=== PATIENT | female | born 1930 | race Caucasian/White ===

== ENCOUNTER 2018-01-05 09:48 | Inpatient (IN) | payer MEDICARE, OTHER ==
[~2018-01-05] VITALS: Ht 157.5 cm; Wt 89.4 kg
[~2018-01-05 09:48] MED LIST: ACTOS; ACTOS15 MG PO; ANTIVERT25 MG PO; ATENOLOL 50 MG50 M1 PO; AZITHROMYCIN 2250 MG PO; BIOTENE ORALBAL42 GM MM; CALCIUM 600 +1 EAC5 PO; CEFTIN500 MG PO; CLOPIDOGREL; CYMBALTA60 MG; DIABETA; DIABETA 5MG TABL5 MG PO; FISH OIL 1,0001 EAC7 PO; FISH OIL 1,0001 EAC8 PO; GABAPENTIN100 MG PO; HYDROCODON-ACE1 EACH PO; LEVAQUIN 500 M500 M2 PO; LIPITOR; LIPITOR10 MG PO; LISINOPRIL-HCT1 EAC1 PO; LISINOPRIL-HCT1 EAC2 PO; MEDROLDOSEPACK PO; NEURONTIN 300300 M1; NEURONTIN 300300 M1 PO; NORCO 5-325 TA1 EACH PO; OMEPRAZOLE 20 M20 M1 PO; ONDANSETRON HCL4 M2 PO; PLAVIX 75 MG TA75 M1 PO; POTASSIUM20 PO; PREDNISONE 10 M10 M1; PREDNISONE 10 M10 M1 PO; RESTASIS1 EACH OP; VENTOLIN HFA 1818 GM INH; ZANTAC 150MG T150 M1; magic mouthwash PO
[2018-01-05] MEDS ORDERED: KLOR-CON 1010 MEQ PO (10:02)
[2018-01-05] MEDS ORDERED: TENORMIN50 MG PO (10:03)
[2018-01-05] MEDS ORDERED: JANUVIA100 MG PO (10:04)
[2018-01-05 10:27] LABS: ABSOLUTE BASOPHILS 0.1 thou/uL (0.0-0.2); ABSOLUTE LYMPHOCYTES 1.3 thou/uL (0.8-5.3); ABSOLUTE MONOCYTES 0.5 thou/uL (0.0-1.2); BASOPHILS 0.9 %; EOSINOPHILS 0.4 %; HEMATOCRIT 37.6 % (37.0-47.0); HEMOGLOBIN 12.8 gm/dL (12.0-15.0); LYMPHOCYTES 18.4 %; MCH 31.4 pg (26.0-34.0); MCHC 34.1 g/dL (28.0-37.0); MCV 92.1 fL (80.0-100.0); MONOCYTES 7.2 %; NUCLEATED RBCS 0 /100WBC; PLATELET COUNT* 165 thou/uL (150-400); POLYS 73.1 %; RBC 4.08 mil/uL (4.20-5.00); RDW-CV 13.2 % (10.5-14.5); WBC 6.9 thou/uL (4.0-11.0)
[2018-01-05 10:34] LABS: ANION GAP 9 mmol/L (7-16); BUN 32 mg/dL (7-18); CALCIUM 9.8 mg/dL (8.5-10.1); CHLORIDE 100 mmol/L (98-107); CO2 29 mmol/L (21-32); CREATININE 1.7 mg/dL (0.6-1.3); GLUCOSE 292 mg/dL (70-99); POTASSIUM 3.8 mmol/L (3.5-5.1); SODIUM 138 mmol/L (136-145)
[2018-01-05 10:35] LABS: APTT 24.3 Seconds (25.0-31.3); INR 1.1; PROTIME 10.5 Seconds (9.20-11.50)
[2018-01-05 10:46] LABS: ALBUMIN 3.8 g/dL (3.4-5.0); ALKALINE PHOSPHATASE 103 U/L (46-116); NT-PRO BRAIN NAT PEPTIDE 119 pg/mL (<300); SGOT 23 U/L (15-37); SGPT 25 U/L (30-65); TOTAL BILIRUBIN 0.4 mg/dL (<0.1-1.0); TOTAL PROTEIN 8.2 g/dL (6.4-8.2); TROPONIN-I LEVEL <0.06 ng/mL (<0.06)
[2018-01-05 11:02] LABS: URINE BILIRUBIN NEGATIVE (Negative); URINE BLOOD NEGATIVE (Negative); URINE CLARITY CLEAR; URINE COLOR YELLOW; URINE GLUCOSE-RANDOM 3+ (Negative); URINE KETONES NEGATIVE (Negative); URINE LEUKOCYTES-REFLEX NEGATIVE (Negative); URINE NITRITE-REFLEX NEGATIVE (Negative); URINE PROTEIN NEGATIVE (Negative); URINE UROBILINOGEN 0.2 E.U./dl (0.2-1.0)
[2018-01-05 11:14] LABS: INFLUENZA A ANTIGEN None Detected (None Detect); INFLUENZA B ANTIGEN None Detected (None Detect)
[2018-01-05 14:11] VITALS: BP 132/51
--- NOTE | 2018-01-05 16:20 | EKG ---
[place] [address] ELECTROCARDIOGRAM REPORT Name: RODERICK ROBIN Room: [address] ADM IN M.R.#: [id number] Admission: 01/05/18 Attend Phys: Jose Kilpatrick MD Discharge: Date of : 12/20/[birth year] Report #: [id number] THIS REPORT FOR: //name// [facility] ED Test Date: 2018-01-05 Test Time: 09:56:45 Pat Name: RODERICK ROBIN Department: Room: [facility] Gender: F Finance Specialist: Nolan NAJERA : 1930 Requested By: Maximo Erickson Order Number: [id number] MD: Obdulio Burgos Measurements Intervals [place] Rate: 96 P: 58 [place]: 152 QRS: 36 QRSD: 95 T: -5 QT: 380 QTc: 481 Interpretive Statements Sinus rhythm Abnormal R-wave progression, early transition Borderline repolarization abnormality Compared to ECG 05/31/2017 11:24:43 No significant changes Electronically Signed On 01-05-2018 16:20:29 SOLE ROUNDER by Obdulio Burgos [email or web address] <ELECTRONICALLY SIGNED> By: Obdulio Burgos MD, [facility] 01/05/18 1620 [id number] Obdulio Burgos MD, [facility] /EPI
[2018-01-05 20:00] VITALS: BP 149/54
[2018-01-06] VITALS: BP 129/48
[2018-01-06 02:07] LABS: GLYCOHEMOGLOBIN (HGB A1C) 8.8 % (4.8-5.6)
[2018-01-06 04:00] VITALS: BP 128/49
[2018-01-06 04:04] LABS: ABSOLUTE EOSINOPHILS 0.1 thou/uL (0.0-0.7); ABSOLUTE LYMPHOCYTES 1.6 thou/uL (0.8-5.3); ABSOLUTE MONOCYTES 0.6 thou/uL (0.0-1.2); ABSOLUTE NEUTROPHILS 4.4 thou/uL (1.6-8.1); BASOPHILS 0.6 %; EOSINOPHILS 0.9 %; HEMATOCRIT 33.5 % (37.0-47.0); HEMOGLOBIN 11.6 gm/dL (12.0-15.0); LYMPHOCYTES 24.1 %; MCH 32.1 pg (26.0-34.0); MCHC 34.7 g/dL (28.0-37.0); MCV 92.5 fL (80.0-100.0); MONOCYTES 9.3 %; MPV 9.3 fl. (7.2-11.1); NUCLEATED RBCS 0 /100WBC; PLATELET COUNT* 152 thou/uL (150-400); POLYS 65.1 %; RBC 3.62 mil/uL (4.20-5.00); WBC 6.8 thou/uL (4.0-11.0)
[2018-01-06 04:36] LABS: CALCIUM 9.3 mg/dL (8.5-10.1); CREATININE 1.7 mg/dL (0.6-1.3); POTASSIUM 4.4 mmol/L (3.5-5.1)
[2018-01-06 08:10] VITALS: BP 156/63
--- NOTE | 2018-01-06 11:48 | 2DMMODE ---
[place] [address] 2 D/M-MODE ECHOCARDIOGRAM Name: RODERICK ROBIN Room: [address] IN [facility]#: [id number] Admission: 01/05/18 Attend Phys: Jose Kilpatrick, Discharge: Date of : 12/20/30 Date of Service: 01/06/18 1147 Report #: [id number] THIS REPORT FOR: //name// ADDENDUM APPROVED REPORT Study performed: 01/05/2018 16:30:50 EXAM: Comprehensive 2D, Doppler, and color-flow Echocardiogram Patient Location: In-Patient Room #: [facility] Status: routine BSA: 1.90 HR: 103 bpm BP: 132/51 mmHg Rhythm: NSR Other Information Study Quality: Good Indications Murmur Chest Pain 2D Dimensions LVEF(%): 74.44 (>50%) IVSd: 14.47 (7-11mm) LVOT Diam: 18.66 (18-24mm) LVDd: 38.07 mm PWd: 11.44 (7-11mm) Ascending Ao: 34.04 (22-36mm) LVDs: 21.84 (25-40mm) Aortic Root: 29.48 mm Hallman's LVEF: 74.44 % Volumes Left Atrial Volume (Systole) LA ESV Index: 24.80 mL/m2 Aortic Valve AoV Peak Jerry.: 2.32 m/s AO Peak Gr.: 21.57 mmHg LVOT Max P.52 mmHg AO Mean Gr.: 11.78 mmHg LVOT Mean P.91 mmHg LVOT Max V: 1.46 m/s AO V2 VTI: 39.02 cm LVOT Mean V: 0.90 m/s MARY (VTI): 2.12 cm2 LVOT V1 VTI: 30.32 [place] [address] 2 D/M-MODE ECHOCARDIOGRAM Name: RODERICK ROBIN Room: [address] IN .R.#: [id number] Admission: 01/05/18 Attend Phys: Jose Kilpatrick, Discharge: Date of : 12/20/[birth year] Date of Service: 01/06/18 1147 Report #: [id number] E/A Ratio: 0.68 MV Decel. Time: 224.29 ms MV E Max Jerry.: 0.80 m/s MV PHT: 65.04 ms MVA (PHT): 3.38 cm2 TDI E/Lateral E': 8.00 E/Medial E': 10.00 Medial E' Jerry.: 0.08 m/s Lateral E' Jerry.: 0.10 m/s Pulmonary Valve PV Peak Jerry.: 1.29 m/s PV Peak Gr.: 6.62 mmHg Left Ventricle The left ventricle is normal size. There is normal LV segmental wall motion. There is normal left ventricular wall thickness. Left ventricular systolic function is normal. The left ventricular ejection fraction is within the normal range. LVEF is 65-70%. Grade I - abnormal relaxation pattern. Right Ventricle The right ventricle is normal size. The right ventricular systolic function is normal. Atria Left atrium is borderline dilated. The right atrium size is normal. Aortic Valve Mild aortic valve sclerosis. No aortic regurgitation is present. There is no aortic valvular stenosis. Mitral Valve Mild mitral annular calcification. There is no mitral valve regurgitation noted. No evidence of mitral valve stenosis. Tricuspid Valve The tricuspid valve is normal in structure. Unable to assess PA pressure. Trace tricuspid regurgitation. Pulmonic Valve The pulmonary valve is normal in structure. There is no pulmonic valvular regurgitation[place] [address] 2 D/M-MODE ECHOCARDIOGRAM Name: RODERICK ROBIN Room: [address]#: [id number] Admission: 01/05/18 Attend Phys: Jose Kilpatrick, Discharge: Date of : 12/20/[birth year] Date of Service: 01/06/18 1147 Report #: [id number] The aortic root is normal in size. IVC is normal in size and collapses with >50% inspiration Pericardium There is no pericardial effusion. <Conclusion> There is normal left ventricular wall thickness. Left ventricular systolic function is normal. The left ventricular ejection fraction is within the normal range. LVEF is 65-70%. Grade I - abnormal relaxation pattern. The right ventricle is normal size. Left atrium is borderline dilated. Mild aortic valve sclerosis. No aortic regurgitation is present. There is no aortic valvular stenosis. Mild mitral annular calcification. There is no mitral valve regurgitation noted. No evidence of mitral valve stenosis. The tricuspid valve is normal in structure. IVC is normal in size and collapses with >50% inspiration There is no pericardial effusion. There is normal LV segmental wall motion. <ELECTRONICALLY SIGNED> By: Obdulio Burgos MD, FACC 01/06/18 1147 114 114 Obdulio Burgos MD, FACC /INF
[2018-01-06 12:00] VITALS: BP 138/57
[2018-01-06 17:05] VITALS: BP 160/64
--- NOTE | 2018-01-06 17:40 | CARDNUC ---
[place] [address] CARDIAC NUCLEAR IMAGING REPORT Name: RODERICK ROBIN Room: [address] IN [facility]#: [id number] Admission: 01/05/18 Attend Phys: Jose Kilpatrick, Discharge: Date of : 12/20/[birth year] Date of Service: 01/06/18 1740 Report #: [id number] THIS REPORT FOR: //name// APPROVED REPORT Exam: Nuclear Stress Test Indication: Chest pain, Dyspnea Patient Location: In-Patient Room #: 316 Stress Tech: Nava Manriquez Stress Nurse: Lor Tripp RN Ht: 5 ft 2 in Wt: 191 lbs BSA: 1.87 m2 BMI: 34.93 Medical History Medical History: hyperlipidemia, htn,diabetes Medications: atenolol, atorvastatin,hydralazine,asa Allergies: prednisone Cardiac Risk Factors: age, hyperlipidemia, hypertension, diabetes, family hx Previous Cardiac Procedures: none Exercise History: Sedentary Meds Held (24 hrs): atenolol Stress Test Details Stress Test: Pharmacologic stress testing performed using 0.4 mg of regadenoson per 5 mL given IV over 10 seconds. Reason for pharmacologic stress test: physical limitation. Reversal agent Aminophyline 50 mg, given intravenously for other. HR Resting HR: 98 bpm Max Heart Rate (APMHR): 133 bpm Max HR Achieved: 115 bpm Target HR (85% APMHR): 113 bpm % of APMHR: 86 Recovery HR: 115 bpm BP Resting BP: 158/64 mmHg Max BP: 136/52 mmHg ECG Resting ECG: Sinus Rhythm, normal EKG Stress ECG: Sinus Rhythm, normal EKG ST Change: [place] [address] CARDIAC NUCLEAR IMAGING REPORT Name: RODERICK ROBIN Room: [address]#: [id number] Admission: 01/05/18 Attend Phys: Jose Kilpatrick, Discharge: Date of : 12/20/[birth year] Date of Service: 01/06/18 1740 Report #: [id number] Arrhythmia: None Recovery ECG: Sinus Rhythm, normal EKG Recovery ST Change: None Recovery Arrhythmia: None Clinical Reason for Termination: Completed protocol Stress Symptoms: none Exercise duration: 0 min sec Exercise capacity: 1 METs The patient had no significant chest discomfort with Lexiscan infusion. Nurse Comments pt co feeling "fuzzy' heart rate high so aminophylline given Stress ECG Conclusion The baseline 12-lead elect cardiogram showed sinus rhythm with no significant ST or T wave abnormality. EKGs obtained obtained during and post Lexiscan infusion show sinus rhythm with no significant ST or T wave changes when compared baseline. There were no stress-induced arrhythmias. NM EXAM: Myocardial Perfusion REST/STRESS Imaging Protocol: Stress Tc-99m/Rest Tc-99m 2 days Pharmacologic Stress Pharmacologic stress test was performed by injecting Regadenoson 0.4 mg IV push followed by the intravenous injection of 39.8 mCi of Tc-99m Sestamibi. Time of stress injection: 1600 Date: 01/06/2018 Time of stress imagin Date: 01/06/2018 Administration Route: IV Administration Site: Right Arm Heart Rate at time of stress injection: 115 bpm. Gated Stress SPECT was performed 40 minutes after stress injection. The images were gated to evaluate regional wall motion and calculate left ventricular ejection fraction. Study Quality Study: Good Artifact: No artifact Study Data Post stress, the [place] [address] CARDIAC NUCLEAR IMAGING REPORT Name: RODERICK ROBIN Room: [address]#: [id number] Admission: 01/05/18 Attend Phys: Jose Kilpatrick, Discharge: Date of : 12/20/[birth year] Date of Service: 01/06/18 1740 Report #: [id number] 76%.. Perfusion Post Lexiscan stress images show uniform uptake of the radioisotope throughout the myocardium with no defect to suggest infarct or ischemia. Wall Motion Normal left ventricular wall motion. Nuclear Conclusion ECG Findings: negative for ischemia Clinical Findings: negative for ischemia Nuclear Findings: negative for ischemia Exercise Capacity: not assessed Left Ventricular Function: normal Risk Study: low Post stress myocardial perfusion images show no defect to suggest infarct or ischemia. Left ventricular systolic function is normal on gated studies. This is a low risk study. <Conclusion> The baseline 12-lead elect cardiogram showed sinus rhythm with no significant ST or T wave abnormality. EKGs obtained obtained during and post Lexiscan infusion show sinus rhythm with no significant ST or T wave changes when compared baseline. There were no stress-induced arrhythmias. <ELECTRONICALLY SIGNED> By: Jae De La Vega MD, [facility] 01/06/181739 39 39 Jae De La Vega MD, FACC /INF
[2018-01-07] VITALS: BP 133/58
[2018-01-07 03:44] VITALS: BP 135/54
[2018-01-07 04:38] LABS: ABSOLUTE EOSINOPHILS 0.1 thou/uL (0.0-0.7); ABSOLUTE LYMPHOCYTES 1.8 thou/uL (0.8-5.3); ABSOLUTE MONOCYTES 0.6 thou/uL (0.0-1.2); ABSOLUTE NEUTROPHILS 2.9 thou/uL (1.6-8.1); BASOPHILS 0.7 %; EOSINOPHILS 2.3 %; HEMATOCRIT 33.7 % (37.0-47.0); HEMOGLOBIN 11.6 gm/dL (12.0-15.0); LYMPHOCYTES 32.5 %; MCH 31.9 pg (26.0-34.0); MCHC 34.5 g/dL (28.0-37.0); MCV 92.3 fL (80.0-100.0); MONOCYTES 10.4 %; MPV 9.2 fl. (7.2-11.1); NUCLEATED RBCS 0 /100WBC; PLATELET COUNT* 151 thou/uL (150-400); POLYS 54.1 %; RBC 3.65 mil/uL (4.20-5.00); RDW-CV 13.3 % (10.5-14.5); WBC 5.5 thou/uL (4.0-11.0)
[2018-01-07 04:43] LABS: ALBUMIN 3.2 g/dL (3.4-5.0); CALCIUM 9.1 mg/dL (8.5-10.1); CREATININE 1.5 mg/dL (0.6-1.3); POTASSIUM 4.3 mmol/L (3.5-5.1); TOTAL BILIRUBIN 0.5 mg/dL (<0.1-1.0); TOTAL PROTEIN 6.6 g/dL (6.4-8.2)
[2018-01-07 07:41] VITALS: BP 149/62
[2018-01-07 09:00] VITALS: BP 149/62
[2018-01-07 11:59] VITALS: BP 149/62
[2018-01-07] MEDS ORDERED: LEVAQUIN 500 M500 M2 PO (12:45)
== END 2018-01-07 13:15 | disposition home health service (06) | DRG 682 ==
LOC: M.ERS 09:48 → M.3W 11:15 → M.TBA-ER 11:15 → M.3W 14:38
PROVIDERS: Emergency Medicine Emergency Medical Services; ADMIT Internal Medicine
DX: N17.9 Acute kidney failure, unspecified (principal); J96.21 Acute and chronic respiratory failure with hypoxia; J44.0 Chronic obstructive pulmonary disease with (acute) lower respiratory infection; R65.10 Systemic inflammatory response syndrome (SIRS) of non-infectious origin without acute organ dysfunction; N18.4 Chronic kidney disease, stage 4 (severe); J20.9 Acute bronchitis, unspecified; E11.65 Type 2 diabetes mellitus with hyperglycemia; M19.90 Unspecified osteoarthritis, unspecified site; E78.5 Hyperlipidemia, unspecified; E11.40 Type 2 diabetes mellitus with diabetic neuropathy, unspecified; E11.22 Type 2 diabetes mellitus with diabetic chronic kidney disease; I12.9 Hypertensive chronic kidney disease with stage 1 through stage 4 chronic kidney disease, or unspecified chronic kidney disease; Z77.22 Contact with and (suspected) exposure to environmental tobacco smoke (acute) (chronic); G47.33 Obstructive sleep apnea (adult) (pediatric); Z79.899 Other long term (current) drug therapy; Z88.8 Allergy status to other drugs, medicaments and biological substances; Z98.41 Cataract extraction status, right eye; Z98.42 Cataract extraction status, left eye; Z90.710 Acquired absence of both cervix and uterus; Z82.49 Family history of ischemic heart disease and other diseases of the circulatory system

== ENCOUNTER 2018-01-13 19:24 | Inpatient (IN) | payer MEDICARE, OTHER ==
[~2018-01-13] VITALS: Ht 157.5 cm; Wt 84.9 kg
[~2018-01-13 19:24] MED LIST changes: +JANUVIA100 MG PO; +KLOR-CON 1010 MEQ PO; +TENORMIN50 MG PO
[2018-01-13 19:27] VITALS: BP 170/89
[2018-01-13 19:47] LABS: ABSOLUTE BASOPHILS 0.1 thou/uL (0.0-0.2); ABSOLUTE EOSINOPHILS 0.1 thou/uL (0.0-0.7); ABSOLUTE LYMPHOCYTES 2.6 thou/uL (0.8-5.3); ABSOLUTE MONOCYTES 0.7 thou/uL (0.0-1.2); ABSOLUTE NEUTROPHILS 4.5 thou/uL (1.6-8.1); BASOPHILS 0.9 %; EOSINOPHILS 0.9 %; HEMATOCRIT 40.2 % (37.0-47.0); HEMOGLOBIN 13.5 gm/dL (12.0-15.0); LYMPHOCYTES 32.7 %; MCH 31.2 pg (26.0-34.0); MCHC 33.6 g/dL (28.0-37.0); MCV 92.8 fL (80.0-100.0); MONOCYTES 8.7 %; NUCLEATED RBCS 0 /100WBC; PLATELET COUNT* 170 thou/uL (150-400); POLYS 56.8 %; RBC 4.33 mil/uL (4.20-5.00); RDW-CV 12.9 % (10.5-14.5)
[2018-01-13 19:51] LABS: ANION GAP 15 mmol/L (7-16); BUN 40 mg/dL (7-18); CALCIUM 9.6 mg/dL (8.5-10.1); CHLORIDE 98 mmol/L (98-107); CO2 27 mmol/L (21-32); CREATININE 2.1 mg/dL (0.6-1.3); GLUCOSE 297 mg/dL (70-99); POTASSIUM 4.5 mmol/L (3.5-5.1); SODIUM 140 mmol/L (136-145)
[2018-01-13 19:59] LABS: INR 1.1; PROTIME 10.9 Seconds (9.20-11.50)
[2018-01-13 20:02] LABS: ALBUMIN 3.7 g/dL (3.4-5.0); ALKALINE PHOSPHATASE 78 U/L (46-116); NT-PRO BRAIN NAT PEPTIDE 115 pg/mL (<300); SGOT 30 U/L (15-37); SGPT 27 U/L (30-65); TOTAL BILIRUBIN 0.4 mg/dL (<0.1-1.0); TROPONIN-I LEVEL <0.06 ng/mL (<0.06)
[2018-01-13 20:32] LABS: URINE BILIRUBIN NEGATIVE (Negative); URINE BLOOD NEGATIVE (Negative); URINE CLARITY CLEAR; URINE COLOR YELLOW; URINE GLUCOSE-RANDOM 3+ (Negative); URINE KETONES TRACE (Negative); URINE LEUKOCYTES-REFLEX NEGATIVE (Negative); URINE NITRITE-REFLEX NEGATIVE (Negative); URINE PROTEIN NEGATIVE (Negative); URINE SPECIFIC GRAVITY <= 1.005 (1.005-1.030); URINE UROBILINOGEN 0.2 E.U./dl (0.2-1.0)
[2018-01-13 23:06] VITALS: BP 143/65
--- NOTE | 2018-01-14 04:26 | NUR ---
PT ADMITTED FROM ER. HISTORY AND ASSESSMENT COMPLETE. ORIENTED TO ROOM, CALL LIGHT, AND BED CONTROLS. SR ON MONITOR. FALL PRECAUTIONS IN PLACE INCLUDING BED ALARM. CALL LIGHT IN REACH. BED IN LOWEST POSITION.
[2018-01-14 04:30] VITALS: BP 146/56
[2018-01-14 07:34] LABS: HEMATOCRIT 34.3 % (37.0-47.0); HEMOGLOBIN 11.7 gm/dL (12.0-15.0); MCH 31.6 pg (26.0-34.0); MCHC 34.1 g/dL (28.0-37.0); MCV 92.9 fL (80.0-100.0); RBC 3.69 mil/uL (4.20-5.00); RDW-CV 13.2 % (10.5-14.5); WBC 5.6 thou/uL (4.0-11.0)
[2018-01-14 07:40] VITALS: BP 146/59
[2018-01-14 07:51] LABS: CALCIUM 8.9 mg/dL (8.5-10.1); CREATININE 1.7 mg/dL (0.6-1.3); POTASSIUM 4.2 mmol/L (3.5-5.1); TOTAL BILIRUBIN 0.4 mg/dL (<0.1-1.0); TOTAL PROTEIN 6.7 g/dL (6.4-8.2)
--- NOTE | 2018-01-14 07:56 | NUR ---
PT 96% ON ROOM AIR
[2018-01-14 09:57] VITALS: BP 146/59
--- NOTE | 2018-01-14 10:09 | NUR ---
PT REPORTS SHE HAD APPOINTMENT WITH PCP TODAY AND ASKED THIS RN TO CANCEL APPOINTMENT. PCP DR. ALEKSANDR MARTINEZ CALLED AND LEFT MESSAGE THAT PT IN HOSPITAL AND TO CANCEL APPOINTMENT.
--- NOTE | 2018-01-14 10:30 | EKG ---
[place] [address] ELECTROCARDIOGRAM REPORT Name: RODERICK ROBIN Room: [address] ADM IN .R.#: [id number] Admission: 01/13/18 Attend Phys: Adore Chamorro Discharge: Date of : 12/20/[birth year] Report #: [id number] THIS REPORT FOR: //name// [facility] ED Test Date: 2018-01-13 Test Time: 19:30:27 Pat Name: RODERICK ROBIN Department: Room: [facility] Gender: F Alternative Financing Specialist: NEFTALY Francisco : 1930 Requested By: Rosaura Talamantes Order Number: [id number] MD: Zaheer Salinas Measurements Intervals [place] Rate: 119 P: 62 [place]: 152 QRS: 49 QRSD: 96 T: 43 QT: 347 QTc: 489 Interpretive Statements Sinus tachycardia Atrial premature complex Low voltage, precordial leads Borderline prolonged QT interval Compared to ECG 01/05/2018 09:56:45 Atrial premature complex(es) now present Low QRS voltage now present Sinus rhythm no longer present Electronically Signed On 01-14-2018 10:30:11 PHOTONICS ENGINEERING TECHNICIAN by Zaheer Salinas [email or web address] <ELECTRONICALLY SIGNED> By: Zaheer Salinas MD, FAC 01/14/18 1030 1930 29 Zaheer Salinas MD, [facility] /EPI
--- NOTE | 2018-01-14 12:15 | NUR ---
PT A/O X'S 4. NO C/O PAIN. NO DIZZINESS. PT STARTED ON SOTALOL. PT EDUCATED ON NEW MEDICATION. PT UP STAND BY ASSIST. PT RECEIVED BATH BY PHYSICAL THERAPY NURSE'S. VSS. AFEBRILE. TRACING SR. WILL CONTINUE PLAN OF CARE.
[2018-01-14 12:18] VITALS: BP 133/52
--- NOTE | 2018-01-14 14:00 | NUR ---
MET WITH PT TO DISCUSS HOME SITUATION/DC PLANNING. PT JUST DC'D HOME A FEW DAYS AGO. SHE LIVES ALONE AND IS INDEPENDENT WITH ADLS. USES CANE PRN. SHE HAS HH WITH [facility] AND IS AGREEABLE TO CONTINUE. CALLED [facility] AND LEFT [facility] RE: PT HOSPITALIZED. PT'S SON ASSISTS WITH DRIVING. PT DOES OWN COOKING, CLEANING, ETC. WILL FOLLOW [facility] [phone] FAX [phone]
--- NOTE | 2018-01-14 18:15 | CON ---
[address] [place] [address] [address] CONSULTATION Name: RODERICK ROBIN Room: [address] IN M.R.#: [id number] Admission: 01/13/18 Attend Phys: Adore Chamorro Discharge: Date of : 12/20/[birth year] Report #: [id number] THIS REPORT FOR: //name// CC: Dedra Butt DATE OF SERVICE: 01/14/2018 Cardiology Consultation HISTORY OF PRESENT ILLNESS: The patient is an 87-year-old single white female who was last seen in the hospital today after she complained of being lightheaded. The patient has had multiple hospitalizations here at [facility]. She has a long history of complaint of chest pain. Previous nuclear stress test in 2011 showed no ischemia. Previous echocardiogram showed normal left ventricular function. She is not very active because of her age and uses a cane. She was actually just admitted to [facility] 2 weeks ago on January 05. She came to the emergency room complaining of shortness of breath, fatigue. During that hospitalization, she was actually seen by my nurse practitioner Luda Ferreira. The patient did have occasional chest pain in addition to her shortness of breath. She underwent a cardiac evaluation 2 weeks ago that included an echocardiogram that showed an ejection fraction of 65%, aortic sclerosis. She then underwent a nuclear stress test using LexiScan scan that showed no evidence of ischemia or previous infarction. Ejection fraction was normal. It was felt her chest pain was noncardiac. The patient was just discharged 5 days ago. The patient states she has difficulty sleeping at night, does go to sleep at about 1 in the morning. Yesterday, the patient got up from dinner to go to the bathroom. She then felt lightheaded and the room was spinning. She had to sit down. He felt her heart racing. She called her daughter who brought her to the hospital, and she was admitted. She had no loss of consciousness, seizure activity. She has had no recent vomiting, diarrhea, bleeding. She has had no recent fever or cough. PAST MEDICAL HISTORY: Otherwise, significant for bilateral knee replacement, hysterectomy, cataract extraction, hypertension, diabetes and hyperlipidemia. MEDICATIONS: Consists of Januvia, glyburide, lisinopril HCT, atenolol, Neurontin, Lipitor, clopidogrel. ALLERGIES: She has intolerance to PREDNISONE. FAMILY HISTORY: Father of heart attack. SOCIAL HISTORY: She is originally from [facility]. She now lives by herself in [place]. She is . [place] [address] CONSULTATION Name: RODERICK ROBIN Room: [address] IN ..#: [id number] Admission: 01/13/18 Attend Phys: Adore Chamorro Discharge: Date of : 12/20/[birth year] Report #: [id number] REVIEW OF SYSTEMS: She has had no history of stroke, asthma, peptic ulcer disease, liver disease. She has chronic kidney disease. She sees a noc engineer. No cancer, no psychiatric illness. No chronic skin condition. Does have arthritis. PHYSICAL EXAMINATION: GENERAL: Revealed an elderly appearing female lying in bed. She appeared in no distress. VITAL SIGNS: She had a blood pressure of 150/70s, pulse is 90. She is afebrile. HEENT: She is anicteric, conjunctiva pink. Mucous membranes moist. NECK: Veins do not appear distended. No carotid bruits. CHEST: Clear to auscultation. CARDIAC: Regular rate rhythm, grade 2 systolic ejection murmur. ABDOMEN: Obese, soft, nontender. EXTREMITIES: Had no pitting edema. Dorsalis pedis pulse 1+ bilaterally. SKIN: Cool and dry. NEUROLOGIC: Nonfocal. LYMPH: No adenopathy. MUSCULOSKELETAL: No joint effusion. DIAGNOSTIC DATA: ECG last night showed sinus rhythm. No significant ST or T-wave change. On the monitor last night, she did have an episode of a narrow complex tachycardia at 160 beats per minute that was regular consistent with AV node reentry tachycardia. Her workup, she had chest x-ray last night that showed normal heart size, clear lung avila. She had venous duplex scan of the legs done 2 weeks ago when she was here that showed no DVT. LABORATORY DATA: Sodium 143, BUN 36, creatinine 1.7, glucose 189, troponin 0.06. BNP 115. TSH 1.5. White blood cell count 5.6, hemoglobin 11.7. IMPRESSION AND RECOMMENDATIONS: 1. Lightheaded spell. No significant hypotension noted. 2. Diabetes. 3. Hypertension. The patient is on a beta-david, ELIZABETH inhibitor, diuretic. 4. Hyperlipidemia. The patient is on a statin drug. 5. Chronic kidney disease. 6. Supraventricular tachycardia. The patient is on a beta-david. <ELECTRONICALLY SIGNED> By: Zaheer Salinas MD, FACC 01/14/18 1815 [id number] Salinas MD, FACC /nt
--- NOTE | 2018-01-14 18:37 | NUR ---
PT ON ROOM AIR. NO DIZZINESS OR LIGHTHEADEDNESS THIS SHIFT. PT UP WITH 1. MAG 1.7. FIRST DOSE OF MAG GIVEN PER PROTOCOL.
[2018-01-14 18:45] VITALS: BP 117/39
[2018-01-14 20:00] VITALS: BP 128/52
[2018-01-15] VITALS (7 sets, daily range): BP systolic 109–152; BP diastolic 44–78
--- NOTE | 2018-01-15 04:25 | NUR ---
ASSUMED CARE OF PT AT 1930, NURSING ASSESSMENT COMPLETED AT START OF SHIFT, PT ON TELE MONITOR TRACING SINUS RHYTHM THIS SHIFT, NO EPISODES OF SVT THIS SHIFT, HOURLY ROUNDING COMPLETED, FALL PRECAUTIONS IN PLACE, VOICED NO CONCERNS THIS SHIFT, CALL LIGHT REMAINS WITHIN REACH.
[2018-01-15 05:25] LABS: CREATININE 1.5 mg/dL (0.6-1.3); MAGNESIUM 2.1 mg/dL (1.8-2.4); POTASSIUM 4.2 mmol/L (3.5-5.1)
[2018-01-15 05:27] LABS: ABSOLUTE EOSINOPHILS 0.1 thou/uL (0.0-0.7); ABSOLUTE LYMPHOCYTES 1.7 thou/uL (0.8-5.3); ABSOLUTE MONOCYTES 0.5 thou/uL (0.0-1.2); ABSOLUTE NEUTROPHILS 2.8 thou/uL (1.6-8.1); BASOPHILS 0.6 %; EOSINOPHILS 2.6 %; HEMATOCRIT 34.4 % (37.0-47.0); HEMOGLOBIN 11.7 gm/dL (12.0-15.0); LYMPHOCYTES 32.8 %; MCH 31.3 pg (26.0-34.0); MCHC 34.2 g/dL (28.0-37.0); MCV 91.7 fL (80.0-100.0); MONOCYTES 10.1 %; MPV 9.2 fl. (7.2-11.1); NUCLEATED RBCS 0 /100WBC; PLATELET COUNT* 149 thou/uL (150-400); POLYS 53.9 %; RBC 3.75 mil/uL (4.20-5.00); WBC 5.3 thou/uL (4.0-11.0)
[2018-01-15] MEDS ORDERED: SORINE 80 MG TA80 M1 PO (07:57)
--- NOTE | 2018-01-15 11:04 | NUR ---
ORDERS NOTED FOR DC HOME PENDING PT EVAL. DISCUSSED WITH LANIE/PT. PT PLANS TO GO HOME. CALLED AND FAXED DC ORDERS TO [facility], PT IS CURRENT WITH THEM
--- NOTE | 2018-01-15 12:02 | EKG ---
[place] [address] ELECTROCARDIOGRAM REPORT Name: RODERICK ROBIN Room: [address] ADM IN M.R.#: [id number] Admission: 01/13/18 Attend Phys: Adore Chamorro Discharge: Date of : 12/20/[birth year] Report #: [id number] THIS REPORT FOR: //name// [facility] Test Date: 2018-01-15 Test Time: 07:55:49 Pat Name: RODERICK ROBIN Department: Room: [address] Gender: F Fisher Quahog: ROSS : 1930 Requested By: Zaheer Salinas Order Number: [id number] Reading MD: Kirk Amato Measurements Intervals [place] Rate: 64 P: 70 [place]: 177 QRS: 40 QRSD: 97 T: 29 QT: 449 QTc: 464 Interpretive Statements Sinus rhythm Abnormal R-wave progression, early transition Compared to ECG 01/13/2018 19:30:27 Sinus tachycardia no longer present Atrial premature complex(es) no longer present Electronically Signed On 01-15-2018 12:02:31 SHEET METAL FORMER by Kirk Amato [email or web address] <ELECTRONICALLY SIGNED> By: Kirk Amato MD, FAC 01/15/18 1202 0755 0755 Kirk Amato MD, [facility] /EPI
--- NOTE | 2018-01-15 20:15 | NUR ---
ASSUMED PT CARE AT 0730, FULL ASSESMENT DONE CHARTED. PT A/O X4, DENIES PAIN TODAY. WAS HOPEFUL TO GO HOME, CARDIOLOGY KEEPING PT TO FINISH LOADING SOTOLOL. PTS VSS, SR ON THE MONITOR. PT UP SBA WITH CANE. PT USING CALL LIGHT APPROPRIALTY. FALL PRECATUIONS IN PLACE. REPORT GIVEN TO KOBE HUFF
--- NOTE | 2018-01-16 03:25 | NUR ---
ASSUMED CARE OF PT AT 1900. PT IS ALERT AND ORIENTED. VSS. PERRLA. NO COMPLAINTS OF PAIN. PT IS IN SINUS RYTHM ON [facility] TELEMETRY. PT IS RESTING COMFORTABLY IN BED. RESPIRATIONS ARE EVEN AND NONLABORED. WILL CONTINUE TO MONITOR PT.
[2018-01-16 03:57] VITALS: BP 116/40
[2018-01-16 05:04] LABS: CALCIUM 8.9 mg/dL (8.5-10.1); CREATININE 1.6 mg/dL (0.6-1.3); POTASSIUM 4.1 mmol/L (3.5-5.1)
[2018-01-16 08:00] VITALS: BP 86/44
[2018-01-16 08:05] VITALS: BP 117/47
[2018-01-16 09:45] VITALS: BP 120/42
--- NOTE | 2018-01-16 11:42 | NUR ---
ASSUMED PT CARE AT 0730, FULL ASSESMENT DONE CHARTED. PT A/O X4, DENIES PAIN, ANXIOUS AT TIMES. PT DIZZY THIS AM, BP LOW, DR PEDERSON AWARE, HELD BP MEDS. PT SR ON THE MONITOR, ON RA. FALL PRECATUIONS IN PLACE, PTS SON IN TO VISIT. WILL CONTINUE WITH PLAN OF CARE.
[2018-01-16 12:06] VITALS: BP 134/58
[2018-01-16 19:07] VITALS: BP 112/40
--- NOTE | 2018-01-16 19:43 | NUR ---
pts bp better this afternoon,she states that she is not as dizzy as she was this am. pts son in to visit this afternoon, pt appeared worked up during and after visit. pt more irritable than this am. pt hoping to go home tomorrow. fall precatuionis in place, call light in reach. will continue with plan of care.
[2018-01-17] VITALS: BP 109/42
[2018-01-17 04:00] VITALS: BP 124/43
--- NOTE | 2018-01-17 04:12 | NUR ---
ASSUMED CARE OF PT AT 1930, NURSING ASSESSMENT COMPLETED AT START OF SHIFT, PT VOICED NO CONCERNS, PT CONTINUES ON TELE MONITOR, TRACING SINUS RYTHM THIS SHIFT, PT DENIES PAIN, FALL PRECAUTIONS IN PLACE, HOURLY ROUNDING COMPLETED, CALL LIGHT WITHIN REACH. PT PROGRESSING TOWARDS GOALS.
[2018-01-17 08:02] VITALS: BP 139/47
--- NOTE | 2018-01-17 10:00 | NUR ---
ASSUMED PT CARE 0730. PT A/O X'S 4. PT DENIES FEELING DIZZY OR LIGHTHEADED. PT UP STAND BY. PT WANTS TO BE DISCHARGED. VSS. AFEBRILE. WILL CONTINUE PLAN OF CARE.
[2018-01-17] MEDS ORDERED: SORINE 80 MG TA80 M1 PO (11:37)
[2018-01-17 12:05] VITALS: BP 131/47
[2018-01-17] MEDS ORDERED: GLYBURIDE 2.52.5 MG PO (13:38)
--- NOTE | 2018-01-17 14:27 | NUR ---
RECEIVED DISCHARGE ORDERS. ALL CONSULTS OKAY WITH DISCHARGE. IV AND SENIOR ENGINEERING SPECIALIST DC'D. DTR IN LAW PRESENT FOR DC'D. PT EDUCATED ON F/U WITH PCP AND CARDIOLOGY. PT EDUCATED ON NEW MEDICATION SOTALOL. CARE NOTES PRINTED. ALL BELONGINGS PACKED UP AND LEFT WITH PT.
--- NOTE | 2018-01-17 14:53 | NUR ---
PT HOWARD'D TODAY, HAD ORDERS TO RESUME HER HH. CALLED AND FAXED DC ORDERS TO [facility]
== END 2018-01-17 14:30 | disposition home health service (06) | DRG 308 ==
LOC: M.ERS 19:24 → M.2W 22:17 → M.TBA-ER 22:17 → M.2W 23:06
PROVIDERS: Emergency Medicine; Internal Medicine Cardiovascular Disease; ADMIT Internal Medicine
DX: I47.1 Supraventricular tachycardia (principal); N17.0 Acute kidney failure with tubular necrosis; N18.4 Chronic kidney disease, stage 4 (severe); E44.1 Mild protein-calorie malnutrition; M19.90 Unspecified osteoarthritis, unspecified site; E78.5 Hyperlipidemia, unspecified; Z96.653 Presence of artificial knee joint, bilateral; E11.40 Type 2 diabetes mellitus with diabetic neuropathy, unspecified; E11.22 Type 2 diabetes mellitus with diabetic chronic kidney disease; E66.9 Obesity, unspecified; I12.9 Hypertensive chronic kidney disease with stage 1 through stage 4 chronic kidney disease, or unspecified chronic kidney disease; Z98.42 Cataract extraction status, left eye; Z98.41 Cataract extraction status, right eye; Z79.899 Other long term (current) drug therapy; Z88.8 Allergy status to other drugs, medicaments and biological substances; Z90.710 Acquired absence of both cervix and uterus; Z82.49 Family history of ischemic heart disease and other diseases of the circulatory system; Z68.34 Body mass index [BMI] 34.0-34.9, adult

== ENCOUNTER 2018-03-03 18:20 | Inpatient (IN) | payer MEDICARE, OTHER ==
[~2018-03-03] VITALS: Ht 157.5 cm; Wt 88.9 kg
[~2018-03-03 18:20] MED LIST changes: +GLYBURIDE 2.52.5 MG PO; +SORINE 80 MG TA80 M1 PO
[2018-03-03 18:33] VITALS: BP 203/89
[2018-03-03 19:00] LABS: ABSOLUTE BASOPHILS 0.1 thou/uL (0.0-0.2); ABSOLUTE EOSINOPHILS 0.1 thou/uL (0.0-0.7); ABSOLUTE LYMPHOCYTES 1.9 thou/uL (0.8-5.3); ABSOLUTE MONOCYTES 0.6 thou/uL (0.0-1.2); ABSOLUTE NEUTROPHILS 4.2 thou/uL (1.6-8.1); BASOPHILS 1.2 %; EOSINOPHILS 1.6 %; HEMATOCRIT 37.9 % (37.0-47.0); HEMOGLOBIN 13.1 gm/dL (12.0-15.0); LYMPHOCYTES 27.5 %; MCH 31.6 pg (26.0-34.0); MCHC 34.4 g/dL (28.0-37.0); MCV 91.9 fL (80.0-100.0); MONOCYTES 9.1 %; NUCLEATED RBCS 0 /100WBC; PLATELET COUNT* 177 thou/uL (150-400); POLYS 60.6 %; RBC 4.13 mil/uL (4.20-5.00); RDW-CV 13.2 % (10.5-14.5); WBC 6.9 thou/uL (4.0-11.0)
[2018-03-03 19:11] LABS: CALCIUM 9.6 mg/dL (8.5-10.1); CREATININE 1.3 mg/dL (0.6-1.3)
[2018-03-03 19:12] LABS: POTASSIUM 5.1 mmol/L (3.5-5.1)
[2018-03-03 19:13] LABS: APTT 24.2 Seconds (25.0-31.3)
[2018-03-03 19:15] LABS: URINE BILIRUBIN NEGATIVE (Negative); URINE BLOOD NEGATIVE (Negative); URINE CLARITY CLEAR; URINE COLOR YELLOW; URINE GLUCOSE-RANDOM 3+ (Negative); URINE KETONES NEGATIVE (Negative); URINE LEUKOCYTES-REFLEX NEGATIVE (Negative); URINE NITRITE-REFLEX NEGATIVE (Negative); URINE PROTEIN 1+ (Negative); URINE UROBILINOGEN 0.2 E.U./dl (0.2-1.0)
[2018-03-03 19:33] LABS: ALBUMIN 3.6 g/dL (3.4-5.0); TOTAL BILIRUBIN 0.4 mg/dL (<0.1-1.0); TOTAL PROTEIN 7.9 g/dL (6.4-8.2)
[2018-03-03 20:57] VITALS: BP 188/68
[2018-03-03 21:07] VITALS: BP 181/66
[2018-03-04] VITALS: BP 137/54
[2018-03-04 00:48] LABS: HEMATOCRIT 33.5 % (37.0-47.0); HEMOGLOBIN 11.5 gm/dL (12.0-15.0); MCH 31.6 pg (26.0-34.0); MCHC 34.4 g/dL (28.0-37.0); MPV 8.8 fl. (7.2-11.1); RBC 3.65 mil/uL (4.20-5.00); RDW-CV 12.7 % (10.5-14.5); WBC 6.3 thou/uL (4.0-11.0)
[2018-03-04 01:13] LABS: ALBUMIN 3.1 g/dL (3.4-5.0); CALCIUM 9.1 mg/dL (8.5-10.1); CREATININE 1.3 mg/dL (0.6-1.3); POTASSIUM 4.5 mmol/L (3.5-5.1); TOTAL BILIRUBIN 0.3 mg/dL (<0.1-1.0); TOTAL PROTEIN 6.4 g/dL (6.4-8.2)
[2018-03-04 03:38] VITALS: BP 150/59
--- NOTE | 2018-03-04 05:31 | NUR ---
PT ARRIVED ON 2W FROM ER VIA STRETCHER, ASSISTED TO ROOM ORIENTED TO SURROUNDINGS. VS AND ASSESSMENT STABLE, NSR ON THE MONITOR. O2 2L NC. PT DENIED ANY COMPLAINTS AND SLEPT THROUGH THE NIGHT. WILL CONTINUE PLAN OF CARE.
[2018-03-04 08:36] VITALS: BP 168/67
[2018-03-04 11:30] VITALS: BP 133/60
--- NOTE | 2018-03-04 14:27 | EKG ---
[place] [address] ELECTROCARDIOGRAM REPORT Name: RODERICK ROBIN Room: [address] ADM IN M.R.#: [id number] Admission: 03/03/18 Attend Phys: Adore Chamorro Discharge: Date of : 12/20/[birth year] Report #: [id number] THIS REPORT FOR: //name// [facility] ED Test Date: 2018-03-03 Test Time: 18:38:16 Pat Name: RODERICK ROBIN Department: Room: [facility] Gender: F Data Processing Supervisor: DEMI : 1930 Requested By: Maximo Erickson Order Number: [id number] MD: Kirk Amato Measurements Intervals [place] Rate: 82 P: 46 [place]: 167 QRS: 52 QRSD: 94 T: 46 QT: 406 QTc: 475 Interpretive Statements Sinus rhythm Compared to ECG 01/15/2018 07:55:49 No significant changes Electronically Signed On 03-04-2018 14:27:27 CDT by Kirk Amato [email or web address] <ELECTRONICALLY SIGNED> By: Kirk Amato MD, [facility] 03/04/18 1427 37 37 Kirk Amato MD, FAC /EPI
--- NOTE | 2018-03-04 15:48 | CON ---
[address] [address] CONSULTATION Name: RODERICK ROBIN Room: [address] IN M.R.#: [id number] Admission: 03/03/18 Attend Phys: Adore Chamorro Discharge: Date of : 12/20/30 Report #: [id number] THIS REPORT FOR: //name// CC: She Butt DATE OF SERVICE: 03/04/2018 REASON FOR CONSULTATION: Shortness of breath, dizziness, palpitations. HISTORY OF PRESENT ILLNESS: The patient is an 87-year-old woman who presented to the Emergency Department after having an episode of heart racing, dizziness and then shortness of breath after walking outside. She had been having some mild lower extremity edema as well. She presented to the Emergency Department in sinus rhythm. Cardiac troponin levels were normal. Her chest x-ray did not show significant abnormality. She underwent a V/Q scan, which showed low probability for pulmonary embolus. In talking to the patient who is a [place] of [facility], which her history was somewhat limited, but it appears she had done some walking and then developed her palpitations before the onset of any other symptoms. She was not presyncopal. She has a known history of supraventricular tachycardia and is on a low dose of sotalol per her computer system technician, Dr. Salinas. Although she had some sharp chest pains, she reports that this had been relatively well controlled and had not really been having any chest discomfort prior to this. She has been evaluated extensively in her last hospitalization with a cardiac testing. PAST MEDICAL HISTORY: Earlier this spring, she had a pharmacologic nuclear stress test, which was negative for ischemia. She has had an echocardiogram which demonstrated grossly normal LV function. She does have a known history of PSVT, on sotalol therapy. She has chronic abdominal pain, obesity, vertigo, bronchitis. ALLERGIES: SHE HAS ALLERGIES TO PREDNISONE. HOME MEDICATIONS: Include Plavix 75 mg daily, atorvastatin 10 mg daily, glyburide 5 mg daily, potassium chloride 20 mEq daily and she has been placed on sotalol. PAST SURGICAL HISTORY: Bilateral knee replacements[place] [address] CONSULTATION Name: RODERICK ROBIN Room: [address] IN [facility].#: [id number] Admission: 03/03/18 Attend Phys: Adore Chamorro Discharge: Date of : 12/20/30 Report #: [id number] REVIEW OF SYSTEMS: EYES: Denies any blurred vision or loss of vision. NEUROLOGIC: Denies seizures or syncope. RESPIRATORY: Positive shortness of breath. Positive dyspnea on exertion. CARDIOVASCULAR: No chest pain currently and positive palpitations. GASTROINTESTINAL: No nausea, abdominal pain. GENITOURINARY: No dysuria or hematuria. SKIN: No rashes. Positive edema in the lower extremities, mostly pedal. THROAT: Denies any dysphagia. PHYSICAL EXAMINATION: VITAL SIGNS: 150s-170s systolic, with heart rates in the 70s-90s, temperature is 36.4. GENERAL: Pleasant, obese, elderly female. She is in no apparent distress, resting comfortably in the bed. HEENT: No evidence of trauma. Eyes are intact. No facial asymmetry. NECK: Supple, with no jugular venous distention. CARDIOVASCULAR: Regular. I cannot hear a murmur. LUNGS: Clear to auscultation. ABDOMEN: Soft, nontender, nondistended. EXTREMITIES: There is no peripheral edema. SKIN: Warm and dry. LABORATORY DATA: Electrocardiogram demonstrates a sinus rhythm, QTC 475 milliseconds, rate is 82. Normal ST segments. Hemoglobin is 11.5, white blood cell count 6.3 and platelet count is 143,000. Sodium is 142, potassium is 4.5, chloride is 107, CO2 is 29, BUN is 23, creatinine is 1.3. Chest x-ray shows cardiomegaly, no significant infiltrates. A V/Q scan low probability. IMPRESSION: 1. Dizziness, palpitations. She has a known history of paroxysmal supraventricular tachycardia. I would agree with sotalol loading. I will also place on low dose of Cardizem mainly for blood pressure control. She may have some degree of acute diastolic heart failure. 2. Acute congestive heart failure, diastolic. I would continue with blood pressure control as she has been given one dose of diuretic. I would not treat her long-term with diuretics, though given her poor performance status and fall risk. 3. Hypertension. This should improve. 4. Chest pain. She had been evaluated in the past [place] [address] CONSULTATION Name: RODERICK ROBIN Room: [address] IN [facility]#: [id number] Admission: 03/03/18 Attend Phys: Adore Cahmorro Discharge: Date of : 12/20/30 Report #: [id number] test and echocardiogram. She has ruled out for an acute myocardial infarction. I would continue with medical therapy. <ELECTRONICALLY SIGNED> By: Kirk Amato MD, FACC 03/04/18 1548 1025 1324Kirk Amato MD, FACC /nt
[2018-03-04 16:00] VITALS: BP 112/55
--- NOTE | 2018-03-04 16:02 | NUR ---
CM SPOKE TO THE PATIENT TO DISCUSS HOME SITUATION, DISCHARGE PLANNING NEEDS, AND TO INFORM OF THE ROLE OF CM. PATIENT ALERT, ORIENTED, AND INDEPENDENT WITH ADL'S. PATIENT RESIDES AT HOME ALONE. PATIENT ABLE TO DO CHORES AND PREPARE OWN MEALS. PATIENT'S SON LIVES NEARBY AND ASSIST WITH TRANSPORTATION. PATIENT USES A CANE FOR MOBILITY. PATIENT HAS A HX OF HH WITH [facility], AND IS OPEN TO HH AT D/C. CM SPOKE TO DR THAPA AND HE INFORMS THAT THE PATIENT MAY BE READY TO D/C HOME TOMORROW WITH HH. CM SPOKE TO MYLA AT [facility] TO INFORM OF THE REFERRAL AND FAXED THE PATIENTS FACESHEET AND H&P. CM WILL REMAIN AVAILABLE TO ASSIST AND FOLLOW NEEDED.
--- NOTE | 2018-03-04 18:36 | NUR ---
PT RESTING IN ROOM WITH VISITORS. PT DENIES ANY COMPLAINTS OF PAIN. D/C POSSIBLE FOR 03/05/18, ORDERS ON CHART. PT UP WITH SBA WITH CANE BRP. PT ON 2L NC. BED IN LOWEST POSITION, CALL LIGHT WITHIN REACH, BED ALARM ON. VSS, CARDIAC MONITORING IN PLACE, WILL CONTINUE TO MONITOR FOR REMAINDER OF THE SHIFT
[2018-03-04 20:00] VITALS: BP 124/52
[2018-03-05] VITALS: BP 118/62
[2018-03-05 03:56] VITALS: BP 132/53
--- NOTE | 2018-03-05 04:10 | NUR ---
ASSUMED CARE OF PT AT 1930, NURSING ASSESSMENT COMPLETED AT START OF SHIFT, PT VOICED NO CONCERNS THIS SHIFT. TRACING SINUS RHYTHM ON SOIL EXPERT. HOURLY ROUNDING COMPLETED, CALL LIGHT WITHIN REACH. NO FALLS THIS SHIFT.
[2018-03-05 05:46] LABS: HEMATOCRIT 35.3 % (37.0-47.0); MCH 31.3 pg (26.0-34.0); MCHC 34.1 g/dL (28.0-37.0); MPV 9.4 fl. (7.2-11.1); RBC 3.84 mil/uL (4.20-5.00); WBC 5.9 thou/uL (4.0-11.0)
[2018-03-05 06:30] LABS: ALBUMIN 3.1 g/dL (3.4-5.0); CREATININE 1.5 mg/dL (0.6-1.3); POTASSIUM 4.5 mmol/L (3.5-5.1); TOTAL BILIRUBIN 0.4 mg/dL (<0.1-1.0); TOTAL PROTEIN 6.5 g/dL (6.4-8.2)
[2018-03-05 07:49] VITALS: BP 123/70
--- NOTE | 2018-03-05 09:40 | NUR ---
ASSUMED CARE OF PATIENT AFTER REPORT THIS MORNING. PATIENT AWAKE, ALERT, AND ORIENTED APPROPRIATELY. PHYSICAL ASSESSMENT COMPLETED AND CHARTED. COMPLAINED OF MINOR PAIN TO LEFT SHOULDER BUT DID NOT REQUEST PAIN MEDICATIONS. GIVEN SCHEDULED MEDICATIONS, SEE EMAR FOR DOCUMENTATION. VITAL SIGNS STABLE. OXYGEN SATURATION WITHIN NORMAL LIMITS ON ROOM AIR. PATIENT TRANSFERS AND AMBULATES WITH ASSISTANCE FROM STAFF. USES CALL LIGHT APPROPRIATELY. DENIES NEEDS AT THIS TIME. IS HOPEFUL TO DISCHARGE TODAY. CALL LIGHT WITHIN REACH. NURSING WILL CONTINUE TO MONITOR.
[2018-03-05] MEDS ORDERED: CARDIZEM CD120 MG PO (11:28)
[2018-03-05] MEDS ORDERED: LASIX 40 MG TAB40 M2 PO (11:28)
--- NOTE | 2018-03-05 11:58 | NUR ---
RECEIVED ORDERS TO DISCHARGE PATIENT HOME. IV DISCONTINUED. SHAPE CARVER RETURNED TO NURSE'S STATION. WAITING FOR CM TO INPUT HOME HEALTH INFORMATION INTO DISCHARGE PAPERWORK. NURSING WILL CONTINUE TO MONITOR UNTIL DISCHARGE.
[2018-03-05 12:00] VITALS: BP 131/40
--- NOTE | 2018-03-05 13:01 | NUR ---
DISCHARGE PAPERWORK COMPLETED AND SIGNED BY ALL APPROPRIATE PARTIES, ON PATIENT'S CHART. DISCUSSED PRESCRIPTIONS AND DISCHARGE PAPERWORK WITH PATIENT AND SON. GIVEN COPIES TO GO HOME WITH. PATIENT DISCONTINUED AT 1300.
--- NOTE | 2018-03-05 13:57 | NUR ---
PT.DISCHARGED EARLIER. CM NOTIFIED [facility] THAT DISCHARGE ORDERS FOR NURSING WERE BEING FAXED. FAXED ORDERS, FACE SHEET, FACE TO FACE AND DISCHARGE SUMMARY TO HER AT [phone]. THEY WILL CALL PT.TO SET UP APPT.TO SEE HER AT HOME.
== END 2018-03-05 13:03 | disposition home health service (06) | DRG 291 ==
LOC: M.ERS 18:20 → M.2W 19:47 → M.TBA-ER 19:47 → M.2W 21:07
PROVIDERS: Emergency Medicine Emergency Medical Services; ADMIT Internal Medicine
DX: I13.0 Hypertensive heart and chronic kidney disease with heart failure and stage 1 through stage 4 chronic kidney disease, or unspecified chronic kidney disease (principal); I50.33 Acute on chronic diastolic (congestive) heart failure; N18.4 Chronic kidney disease, stage 4 (severe); E11.22 Type 2 diabetes mellitus with diabetic chronic kidney disease; E11.40 Type 2 diabetes mellitus with diabetic neuropathy, unspecified; M19.90 Unspecified osteoarthritis, unspecified site; I25.10 Atherosclerotic heart disease of native coronary artery without angina pectoris; E78.5 Hyperlipidemia, unspecified; Z96.653 Presence of artificial knee joint, bilateral; Z98.42 Cataract extraction status, left eye; Z98.41 Cataract extraction status, right eye; Z90.710 Acquired absence of both cervix and uterus; Z79.02 Long term (current) use of antithrombotics/antiplatelets; Z79.899 Other long term (current) drug therapy; Z88.8 Allergy status to other drugs, medicaments and biological substances; Z82.49 Family history of ischemic heart disease and other diseases of the circulatory system

== ENCOUNTER 2018-04-21 11:58 | Emergency (ER) | payer MEDICARE, OTHER ==
[~2018-04-21] VITALS: Ht 154.9 cm; Wt 89.8 kg
[~2018-04-21 11:58] MED LIST changes: +CARDIZEM CD120 MG PO; +LASIX 40 MG TAB40 M2 PO
[2018-04-21 12:49] LABS: ABSOLUTE BASOPHILS 0.1 thou/uL (0.0-0.2); ABSOLUTE EOSINOPHILS 0.1 thou/uL (0.0-0.7); ABSOLUTE LYMPHOCYTES 1.5 thou/uL (0.8-5.3); ABSOLUTE MONOCYTES 0.6 thou/uL (0.0-1.2); ABSOLUTE NEUTROPHILS 4.5 thou/uL (1.6-8.1); BASOPHILS 0.8 %; EOSINOPHILS 1.2 %; HEMATOCRIT 35.2 % (37.0-47.0); LYMPHOCYTES 22.5 %; MCH 31.5 pg (26.0-34.0); MCHC 34.2 g/dL (28.0-37.0); MCV 92.2 fL (80.0-100.0); MONOCYTES 8.7 %; MPV 8.9 fl. (7.2-11.1); NUCLEATED RBCS 0 /100WBC; PLATELET COUNT* 158 thou/uL (150-400); POLYS 66.8 %; RBC 3.82 mil/uL (4.20-5.00); WBC 6.7 thou/uL (4.0-11.0)
[2018-04-21 13:00] LABS: CALCIUM 9.4 mg/dL (8.5-10.1); CREATININE 1.3 mg/dL (0.6-1.3); POTASSIUM 4.3 mmol/L (3.5-5.1)
[2018-04-21 13:04] LABS: ALBUMIN 3.3 g/dL (3.4-5.0); TOTAL BILIRUBIN 0.4 mg/dL (<0.1-1.0); TOTAL PROTEIN 7.3 g/dL (6.4-8.2)
[2018-04-21 13:55] LABS: URINE BILIRUBIN NEGATIVE (Negative); URINE BLOOD NEGATIVE (Negative); URINE CLARITY CLEAR; URINE COLOR YELLOW; URINE GLUCOSE-RANDOM TRACE (Negative); URINE KETONES NEGATIVE (Negative); URINE LEUKOCYTES-REFLEX NEGATIVE (Negative); URINE NITRITE-REFLEX NEGATIVE (Negative); URINE PROTEIN NEGATIVE (Negative); URINE SPECIFIC GRAVITY 1.015 (1.005-1.030); URINE UROBILINOGEN 0.2 E.U./dl (0.2-1.0)
[2018-04-21] MEDS ORDERED: COLACE100 MG PO (14:19)
[2018-04-21] MEDS ORDERED: HYDROCODON-ACE1 EAC7 PO (14:19)
[2018-04-21 14:28] VITALS: BP 101/53
== END 2018-04-21 14:37 | disposition home or self-care (01) ==
LOC: M.ERS 11:58
PROVIDERS: Emergency Medicine
DX: M54.9 Dorsalgia, unspecified (principal); M25.552 Pain in left hip; M48.00 Spinal stenosis, site unspecified; E11.40 Type 2 diabetes mellitus with diabetic neuropathy, unspecified; E78.5 Hyperlipidemia, unspecified; I12.9 Hypertensive chronic kidney disease with stage 1 through stage 4 chronic kidney disease, or unspecified chronic kidney disease; N18.4 Chronic kidney disease, stage 4 (severe); Z96.653 Presence of artificial knee joint, bilateral; E11.22 Type 2 diabetes mellitus with diabetic chronic kidney disease; Z88.6 Allergy status to analgesic agent

== ENCOUNTER 2018-07-18 13:06 | Emergency (ER) | payer MEDICARE, OTHER ==
[~2018-07-18] VITALS: Ht 157.5 cm; Wt 87.1 kg
[~2018-07-18 13:06] MED LIST changes: +COLACE100 MG PO; +HYDROCODON-ACE1 EAC7 PO
[2018-07-18 13:42] LABS: ABSOLUTE BASOPHILS 0.1 thou/uL (0.0-0.2); ABSOLUTE LYMPHOCYTES 1.9 thou/uL (0.8-5.3); ABSOLUTE MONOCYTES 0.6 thou/uL (0.0-1.2); ABSOLUTE NEUTROPHILS 4.9 thou/uL (1.6-8.1); BASOPHILS 0.9 %; EOSINOPHILS 0.5 %; HEMATOCRIT 38.4 % (37.0-47.0); HEMOGLOBIN 13.1 gm/dL (12.0-15.0); LYMPHOCYTES 25.1 %; MCH 31.3 pg (26.0-34.0); MCHC 34.1 g/dL (28.0-37.0); MCV 91.8 fL (80.0-100.0); NUCLEATED RBCS 0 /100WBC; PLATELET COUNT* 168 thou/uL (150-400); POLYS 65.5 %; RBC 4.19 mil/uL (4.20-5.00); WBC 7.5 thou/uL (4.0-11.0)
[2018-07-18 13:52] LABS: ANION GAP 11 mmol/L (7-16); BUN 28 mg/dL (7-18); CALCIUM 9.5 mg/dL (8.5-10.1); CHLORIDE 98 mmol/L (98-107); CO2 28 mmol/L (21-32); CREATININE 1.6 mg/dL (0.6-1.3); GLUCOSE 254 mg/dL (70-99); POTASSIUM 3.6 mmol/L (3.5-5.1); SODIUM 137 mmol/L (136-145)
[2018-07-18 14:02] LABS: ALBUMIN 3.7 g/dL (3.4-5.0); ALKALINE PHOSPHATASE 95 U/L (46-116); NT-PRO BRAIN NAT PEPTIDE 107 pg/mL (<300); SGOT 21 U/L (15-37); SGPT 22 U/L (30-65); TOTAL BILIRUBIN 0.4 mg/dL (<0.1-1.0); TOTAL PROTEIN 7.9 g/dL (6.4-8.2); TROPONIN-I LEVEL <0.06 ng/mL (<0.06)
[2018-07-18 14:29] LABS: INR 1.1; PROTIME 10.4 Seconds (9.20-11.50)
--- NOTE | 2018-07-18 15:15 | EKG ---
[place] [address] ELECTROCARDIOGRAM REPORT Name: RODERICK ROBIN Room: [facility]#: [id number] Admission: 07/18/18 Attend Phys: Discharge: Date of : 12/20/30 Report #: [id number] THIS REPORT FOR: //name// [facility] ED Test Date: 2018-07-18 Test Time: 13:24:18 Pat Name: RODERICK ROBIN Department: Room: Gender: F On Site Property Manager: LISA : 1930 Requested By: Raine Wong Order Number: [id number] MD: Obdulio Burgos Measurements Intervals [place] Rate: 106 P: 62 VT: 160 QRS: 36 QRSD: 99 T: -41 QT: 343 QTc: 456 Interpretive Statements Sinus tachycardia Borderline T abnormalities, inferior leads Compared to ECG 03/03/2018 18:38:16 T-wave abnormality now present Sinus rate has increased Electronically Signed On 07-18-2018 15:15:19 CDT by Obdulio Burgos [email or web address] <ELECTRONICALLY SIGNED> By: Obdulio Burgos MD, [facility] 07/18/18 1515 1324 1324 Obdulio Burgos MD, FACC /EPI
[2018-07-18 15:49] LABS: URINE BILIRUBIN NEGATIVE (Negative); URINE BLOOD NEGATIVE (Negative); URINE CLARITY CLEAR; URINE COLOR YELLOW; URINE GLUCOSE-RANDOM TRACE (Negative); URINE KETONES NEGATIVE (Negative); URINE LEUKOCYTES-REFLEX 1+ (Negative); URINE NITRITE-REFLEX NEGATIVE (Negative); URINE PROTEIN NEGATIVE (Negative); URINE SPECIFIC GRAVITY <= 1.005 (1.005-1.030); URINE UROBILINOGEN 0.2 E.U./dl (0.2-1.0)
[2018-07-18 16:02] LABS: BACTERIA-REFLEX 1-9 Few /HPF (None Seen); CASTS None Seen /LPF (None Seen); CRYSTALS None Seen /LPF (None Seen); MUCUS 0-3 Light strn/LPF (None Seen); SQUAMOUS >10 Many /LPF (0-3); URINE RBC 0-2 Rare /HPF (0-2); URINE WBC-REFLEX 6-15 Few /HPF (0-5)
[2018-07-18 16:56] VITALS: BP 102/68
== END 2018-07-18 16:57 | disposition home or self-care (01) ==
LOC: M.ERS 13:06
PROVIDERS: Nurse Practitioner Family
DX: R06.00 Dyspnea, unspecified (principal); R06.02 Shortness of breath; E78.5 Hyperlipidemia, unspecified; E11.40 Type 2 diabetes mellitus with diabetic neuropathy, unspecified; E11.22 Type 2 diabetes mellitus with diabetic chronic kidney disease; I13.0 Hypertensive heart and chronic kidney disease with heart failure and stage 1 through stage 4 chronic kidney disease, or unspecified chronic kidney disease; N18.4 Chronic kidney disease, stage 4 (severe); I50.9 Heart failure, unspecified; Z96.653 Presence of artificial knee joint, bilateral; Z88.5 Allergy status to narcotic agent

== ENCOUNTER 2018-08-08 14:17 | Emergency (ER) | payer MEDICARE, OTHER ==
[~2018-08-08] VITALS: Ht 157.5 cm; Wt 81.7 kg
[2018-08-08 15:31] LABS: ABSOLUTE BASOPHILS 0.1 thou/uL (0.0-0.2); ABSOLUTE LYMPHOCYTES 1.8 thou/uL (0.8-5.3); ABSOLUTE MONOCYTES 0.6 thou/uL (0.0-1.2); ABSOLUTE NEUTROPHILS 5.5 thou/uL (1.6-8.1); BASOPHILS 1.4 %; EOSINOPHILS 0.3 %; HEMATOCRIT 36.1 % (37.0-47.0); HEMOGLOBIN 12.6 gm/dL (12.0-15.0); LYMPHOCYTES 22.6 %; MCH 31.9 pg (26.0-34.0); MCV 91.1 fL (80.0-100.0); MONOCYTES 7.5 %; MPV 8.8 fl. (7.2-11.1); NUCLEATED RBCS 0 /100WBC; PLATELET COUNT* 177 thou/uL (150-400); POLYS 68.2 %; RBC 3.96 mil/uL (4.20-5.00)
[2018-08-08 15:39] LABS: ANION GAP 14 mmol/L (7-16); BUN 30 mg/dL (7-18); CHLORIDE 100 mmol/L (98-107); CO2 24 mmol/L (21-32); CREATININE 1.8 mg/dL (0.6-1.3); GLUCOSE 310 mg/dL (70-99); POTASSIUM 3.5 mmol/L (3.5-5.1); SODIUM 138 mmol/L (136-145)
[2018-08-08 15:50] LABS: ALBUMIN 3.6 g/dL (3.4-5.0); ALKALINE PHOSPHATASE 99 U/L (46-116); NT-PRO BRAIN NAT PEPTIDE 225 pg/mL (<300); SGOT 24 U/L (15-37); SGPT 27 U/L (30-65); TOTAL BILIRUBIN 0.3 mg/dL (<0.1-1.0); TOTAL PROTEIN 7.8 g/dL (6.4-8.2); TROPONIN-I LEVEL <0.06 ng/mL (<0.06)
[2018-08-08 18:30] VITALS: BP 185/67
--- NOTE | 2018-08-09 13:03 | EKG ---
[place] [address] ELECTROCARDIOGRAM REPORT Name: RODERICK ROBIN [id number] Admission: 08/08/18 Attend Phys: Discharge: 08/08/18 Date of : 12/20/30 Report #: [id number] THIS REPORT FOR: //name// [facility] ED Test Date: 2018-08-08 Test Time: 14:27:41 Pat Name: RODERICK ROBIN Department: Room: Gender: F Assurance Specialist: angelique gupta : 1930 Requested By: Raine Wong Order Number: [id number] MD: Kirk Amato Measurements Intervals [place] Rate: 86 P: 48 PA: 154 QRS: 21 QRSD: 104 T: 48 QT: 402 QTc: 481 Interpretive Statements Sinus rhythm Atrial premature complex Abnormal R-wave progression, early transition Borderline prolonged QT interval Baseline wander in lead(s) V2 Compared to ECG 07/18/2018 13:24:18 Atrial premature complex(es) now present Sinus tachycardia no longer present T-wave abnormality no longer present Electronically Signed On 08-09-2018 13:03:02 CDT by Kirk Amato [email or web address] <ELECTRONICALLY SIGNED> By: Kirk Amato MD, FACC 08/09/18 1303 1427 1427 Kirk Amato MD, FAC /EPI
== END 2018-08-08 18:30 | disposition home or self-care (01) ==
LOC: M.ERS 14:17
PROVIDERS: Nurse Practitioner Family
DX: R06.00 Dyspnea, unspecified (principal); R42 Dizziness and giddiness; I13.0 Hypertensive heart and chronic kidney disease with heart failure and stage 1 through stage 4 chronic kidney disease, or unspecified chronic kidney disease; E11.22 Type 2 diabetes mellitus with diabetic chronic kidney disease; N18.4 Chronic kidney disease, stage 4 (severe); I50.9 Heart failure, unspecified; E78.5 Hyperlipidemia, unspecified; E11.40 Type 2 diabetes mellitus with diabetic neuropathy, unspecified; Z96.653 Presence of artificial knee joint, bilateral; Z90.710 Acquired absence of both cervix and uterus; Z88.8 Allergy status to other drugs, medicaments and biological substances

== ENCOUNTER 2018-08-24 14:10 | Inpatient (IN) | payer MEDICARE, OTHER ==
[~2018-08-24] VITALS: Ht 157.5 cm; Wt 83.5 kg
[2018-08-24 14:13] VITALS: BP 177/69
[2018-08-24 14:53] LABS: URINE BILIRUBIN NEGATIVE (Negative); URINE BLOOD NEGATIVE (Negative); URINE CLARITY CLEAR; URINE COLOR YELLOW; URINE GLUCOSE-RANDOM 3+ (Negative); URINE KETONES NEGATIVE (Negative); URINE LEUKOCYTES-REFLEX NEGATIVE (Negative); URINE NITRITE-REFLEX NEGATIVE (Negative); URINE PROTEIN NEGATIVE (Negative); URINE SPECIFIC GRAVITY <= 1.005 (1.005-1.030); URINE UROBILINOGEN 0.2 E.U./dl (0.2-1.0)
[2018-08-24 14:59] LABS: ABSOLUTE BASOPHILS 0.1 thou/uL (0.0-0.2); ABSOLUTE LYMPHOCYTES 1.8 thou/uL (0.8-5.3); ABSOLUTE MONOCYTES 0.4 thou/uL (0.0-1.2); ABSOLUTE NEUTROPHILS 4.7 thou/uL (1.6-8.1); BASOPHILS 1.1 %; EOSINOPHILS 0.5 %; HEMATOCRIT 38.7 % (37.0-47.0); HEMOGLOBIN 13.1 gm/dL (12.0-15.0); LYMPHOCYTES 25.2 %; MCH 31.1 pg (26.0-34.0); MCHC 33.8 g/dL (28.0-37.0); MONOCYTES 5.5 %; MPV 8.7 fl. (7.2-11.1); NUCLEATED RBCS 0 /100WBC; PLATELET COUNT* 199 thou/uL (150-400); POLYS 67.7 %; RBC 4.21 mil/uL (4.20-5.00); RDW-CV 13.1 % (10.5-14.5)
[2018-08-24 15:09] LABS: ANION GAP 9 mmol/L (7-16); BUN 21 mg/dL (7-18); CALCIUM 9.7 mg/dL (8.5-10.1); CHLORIDE 99 mmol/L (98-107); CO2 28 mmol/L (21-32); CREATININE 1.7 mg/dL (0.6-1.3); GLUCOSE 308 mg/dL (70-99); POTASSIUM 4.2 mmol/L (3.5-5.1); SODIUM 136 mmol/L (136-145)
[2018-08-24 15:15] LABS: ALBUMIN 3.9 g/dL (3.4-5.0); ALKALINE PHOSPHATASE 98 U/L (46-116); SGOT 31 U/L (15-37); SGPT 28 U/L (30-65); TOTAL BILIRUBIN 0.4 mg/dL (<0.1-1.0); TOTAL PROTEIN 8.4 g/dL (6.4-8.2); TROPONIN-I LEVEL <0.06 ng/mL (<0.06)
--- NOTE | 2018-08-24 17:30 | EKG ---
[place] [address] ELECTROCARDIOGRAM REPORT Name: RODERICK ROBIN Room: [place] [address] ADM IN M.R.#: [id number] Admission: 08/24/18 Attend Phys: Adore Chamorro Discharge: Date of : 12/20/30 Report #: [id number] THIS REPORT FOR: //name// [facility] ED Test Date: 2018-08-24 Test Time: 14:28:18 Pat Name: RODERICK ROBIN Department: Room: [facility] Gender: F Commercial Counsel: BLAINE : 1930 Requested By: Maximo Erickson Order Number: [id number] MD: Obdulio Burgos Measurements Intervals [place] Rate: 83 P: 58 MA: 153 QRS: 29 QRSD: 98 T: 40 QT: 372 QTc: 437 Interpretive Statements Sinus rhythm Abnormal R-wave progression, early transition Compared to ECG 08/08/2018 14:27:41 Atrial premature complex(es) no longer present Electronically Signed On 08-24-2018 17:30:32 CDT by Obdulio Burgos [email or web address] <ELECTRONICALLY SIGNED> By: Obdulio Burgos MD, [facility] 08/24/18 8960 1428 1428 Obdulio Burgos MD, [facility] /EPI
[2018-08-24 20:30] VITALS: BP 172/68
[2018-08-24 21:00] VITALS: BP 149/64
[2018-08-25] VITALS: BP 153/51
[2018-08-25 04:00] VITALS: BP 162/62
[2018-08-25 08:12] VITALS: BP 157/60
[2018-08-25 11:47] VITALS: BP 124/60
[2018-08-25 15:30] VITALS: BP 153/56
--- NOTE | 2018-08-25 16:58 | 2DMMODE ---
[place] [address] 2 D/M-MODE ECHOCARDIOGRAM Name: RODERICK ROBIN Room: [address] IN [facility]#: [id number] Admission: 08/24/18 Attend Phys: Obey Butt Discharge: Date of : 12/20/30 Date of Service: 08/25/18 1658 Report #: [id number] THIS REPORT FOR: //name// APPROVED REPORT Study performed: 08/25/2018 15:11:05 EXAM: Comprehensive 2D, Doppler, and color-flow Echocardiogram Patient Location: In-Patient Room #: 201 Status: routine BSA: 1.85 HR: 81 bpm BP: 124/60 mmHg Rhythm: NSR Other Information Study Quality: Good Indications Dyspnea Chest Pain 2D Dimensions IVSd: 10.39 (7-11mm) LVOT Diam: 19.77 (18-24mm) LVDd: 43.64 mm PWd: 9.65 (7-11mm) Ascending Ao: 30.61 (22-36mm) LVDs: 21.98 (25-40mm) Aortic Root: 29.82 mm Volumes Left Atrial Volume (Systole) LA ESV Index: 22.40 mL/m2 Aortic Valve AoV Peak Jerry.: 1.81 m/s AO Peak Gr.: 13.13 mmHg LVOT Max P.68 mmHg AO Mean Gr.: 7.14 mmHg LVOT Mean P.00 mmHg LVOT Max V: 0.96 m/s AO V2 VTI: 33.52 cm LVOT Mean V: 0.67 m/s MARY (VTI): 2.18 cm2 LVOT V1 VTI: 23.78 cm Mitral Valve E/A Ratio: 0.74 MV Decel. Time: 265.21 [place] [address] 2 D/M-MODE ECHOCARDIOGRAM Name: RODERICK ROBIN Room: [address] IN M.R.#: [id number] Admission: 08/24/18 Attend Phys: Obey Butt Discharge: Date of : 12/20/30 Date of Service: 08/25/18 1658 Report #: [id number] MV E Max Jerry.: 0.80 m/s MV PHT: 76.91 ms MVA (PHT): 2.86 cm2 TDI E/Lateral E': 10.00 E/Medial E': 10.00 Medial E' Jerry.: 0.08 m/s Lateral E' Jerry.: 0.08 m/s Pulmonary Valve PV Peak Jerry.: 1.00 m/s PV Peak Gr.: 3.97 mmHg Tricuspid Valve RAP Estimate: 5.00 mmHg TR Peak Gr.: 24.38 mmHg RVSP: 29.38 mmHg PA Pressure: 29.38 mmHg Left Ventricle The left ventricle is normal size. There is normal LV segmental wall motion. There is normal left ventricular wall thickness. Left ventricular systolic function is normal. The left ventricular ejection fraction is within the normal range. LVEF is 65%. Grade I - abnormal relaxation pattern. Right Ventricle The right ventricle is normal size. The right ventricular systolic function is normal. Atria The left atrium size is normal. The right atrium size is normal. Aortic Valve Moderate aortic valve sclerosis. No aortic regurgitation is present. There is no aortic valvular stenosis. Mitral Valve There is mitral annular calcification. There is no mitral valve regurgitation noted. No evidence of mitral valve stenosis. Tricuspid Valve The tricuspid valve is normal in structure. Trace tricuspid regurgitation. No pulmonary hypertension. Pulmonic Valve The pulmonary valve is normal in structure. [place] [address] 2 D/M-MODE ECHOCARDIOGRAM Name: RODERICK ROBIN Room: [address] IN [facility]#: [id number] Admission: 08/24/18 Attend Phys: Obey Butt Discharge: Date of : 12/20/30 Date of Service: 08/25/18 1658 Report #: [id number] valvular regurgitation. Great Vessels The aortic root is normal in size. IVC is normal in size and collapses >50% with inspiration. Pericardium There is no pericardial effusion. <Conclusion> The left ventricle is normal size. There is normal left ventricular wall thickness. Left ventricular systolic function is normal. The left ventricular ejection fraction is within the normal range. LVEF is 65%. Grade I - abnormal relaxation pattern. The right ventricle is normal size. The left atrium size is normal. Moderate aortic valve sclerosis. No aortic regurgitation is present. There is no aortic valvular stenosis. There is mitral annular calcification. There is no mitral valve regurgitation noted. No evidence of mitral valve stenosis. IVC is normal in size and collapses >50% with inspiration. There is no pericardial effusion. There is normal LV segmental wall motion. <ELECTRONICALLY SIGNED> By: Obdulio Burgos MD, FACC 08/25/181657 57 57 Obdulio Burgos MD, FACC /INF
[2018-08-25 20:00] VITALS: BP 155/66
[2018-08-26] VITALS: BP 131/56
[2018-08-26 04:00] VITALS: BP 140/62
[2018-08-26 08:00] VITALS: BP 148/70
[2018-08-26 11:20] VITALS: BP 148/70
[2018-08-26 12:02] VITALS: BP 136/54
== END 2018-08-26 12:53 | disposition home health service (06) | DRG 291 ==
LOC: M.ERS 14:10 → M.TBA-ER 16:30 → M.2W 16:30 → M.TBA-ER 16:36 → M.2W 21:27
PROVIDERS: Emergency Medicine Emergency Medical Services; ADMIT Internal Medicine
DX: I13.0 Hypertensive heart and chronic kidney disease with heart failure and stage 1 through stage 4 chronic kidney disease, or unspecified chronic kidney disease (principal); I50.23 Acute on chronic systolic (congestive) heart failure; N18.4 Chronic kidney disease, stage 4 (severe); I47.1 Supraventricular tachycardia; E11.22 Type 2 diabetes mellitus with diabetic chronic kidney disease; M19.90 Unspecified osteoarthritis, unspecified site; E11.40 Type 2 diabetes mellitus with diabetic neuropathy, unspecified; Z96.653 Presence of artificial knee joint, bilateral; E78.5 Hyperlipidemia, unspecified; Z88.8 Allergy status to other drugs, medicaments and biological substances; Z90.710 Acquired absence of both cervix and uterus; Z98.42 Cataract extraction status, left eye; Z98.41 Cataract extraction status, right eye; Z79.82 Long term (current) use of aspirin; Z79.899 Other long term (current) drug therapy; Z82.49 Family history of ischemic heart disease and other diseases of the circulatory system; Z23 Encounter for immunization

== ENCOUNTER 2018-09-20 12:52 | Emergency (ER) | payer MEDICARE, OTHER ==
[~2018-09-20] VITALS: Ht 160 cm; Wt 90.7 kg
[2018-09-20 14:26] LABS: ABSOLUTE LYMPHOCYTES 1.1 thou/uL (0.8-5.3); ABSOLUTE MONOCYTES 0.5 thou/uL (0.0-1.2); ABSOLUTE NEUTROPHILS 4.7 thou/uL (1.6-8.1); BASOPHILS 0.6 %; EOSINOPHILS 0.5 %; HEMATOCRIT 39.2 % (37.0-47.0); HEMOGLOBIN 13.2 gm/dL (12.0-15.0); LYMPHOCYTES 17.6 %; MCH 31.1 pg (26.0-34.0); MCHC 33.7 g/dL (28.0-37.0); MCV 92.3 fL (80.0-100.0); MONOCYTES 8.2 %; MPV 8.5 fl. (7.2-11.1); NUCLEATED RBCS 0 /100WBC; PLATELET COUNT* 198 thou/uL (150-400); POLYS 73.1 %; RBC 4.25 mil/uL (4.20-5.00); RDW-CV 13.1 % (10.5-14.5); WBC 6.5 thou/uL (4.0-11.0)
[2018-09-20 14:43] LABS: ANION GAP 11 mmol/L (7-16); BUN 27 mg/dL (7-18); CALCIUM 9.9 mg/dL (8.5-10.1); CHLORIDE 100 mmol/L (98-107); CO2 25 mmol/L (21-32); CREATININE 1.6 mg/dL (0.6-1.3); GLUCOSE 251 mg/dL (70-99); POTASSIUM 3.9 mmol/L (3.5-5.1); SODIUM 136 mmol/L (136-145)
[2018-09-20 14:47] LABS: ALBUMIN 3.6 g/dL (3.4-5.0); ALKALINE PHOSPHATASE 86 U/L (46-116); LIPASE 151 U/L (73-393); NT-PRO BRAIN NAT PEPTIDE 137 pg/mL (<300); SGOT 26 U/L (15-37); SGPT 24 U/L (30-65); TOTAL BILIRUBIN 0.5 mg/dL (<0.1-1.0); TOTAL PROTEIN 8.1 g/dL (6.4-8.2); TROPONIN-I LEVEL <0.06 ng/mL (<0.06)
[2018-09-20 14:50] LABS: PROTIME 10.6 Seconds (9.20-11.50)
[2018-09-20 16:03] VITALS: BP 133/57
--- NOTE | 2018-09-20 18:15 | EKG ---
[place] [address] ELECTROCARDIOGRAM REPORT Name: RODERICK ROBIN [id number] Admission: 09/20/18 Attend Phys: Discharge: 09/20/18 Date of : 12/20/[birth year] Report #: [id number] THIS REPORT FOR: //name// [facility] ED Test Date: 2018-09-20 Test Time: 13:03:22 Pat Name: RODERICK SHARDA Department: Room: Gender: F Associate Program Manager: BLAINE : 1930 Requested By: Ady Person Order Number: [id number] MD: Jae De La Vega Measurements Intervals [place] Rate: 96 P: 54 NH: 146 QRS: 38 QRSD: 98 T: 30 QT: 374 QTc: 473 Interpretive Statements Sinus rhythm Abnormal R-wave progression, early transition Baseline wander in lead(s) II Compared to ECG 08/24/2018 14:28:18 No significant changes Electronically Signed On 09-20-2018 18:14:47 CDT by Jae De La Vega [email or web address] <ELECTRONICALLY SIGNED> By: Jae De La Vega MD, [facility] 09/20/18 1814 1303 1303 Jae De La Vega MD, FACC /EPI
== END 2018-09-20 16:04 | disposition home or self-care (01) ==
LOC: M.ERS 12:52
PROVIDERS: Emergency Medicine
DX: R00.2 Palpitations (principal); I13.0 Hypertensive heart and chronic kidney disease with heart failure and stage 1 through stage 4 chronic kidney disease, or unspecified chronic kidney disease; E11.22 Type 2 diabetes mellitus with diabetic chronic kidney disease; N18.4 Chronic kidney disease, stage 4 (severe); I50.9 Heart failure, unspecified; E11.21 Type 2 diabetes mellitus with diabetic nephropathy; E78.5 Hyperlipidemia, unspecified; Z96.653 Presence of artificial knee joint, bilateral; Z90.710 Acquired absence of both cervix and uterus; Z88.8 Allergy status to other drugs, medicaments and biological substances

== ENCOUNTER 2018-10-04 10:41 | Emergency (ER) | payer MEDICARE, OTHER ==
[~2018-10-04] VITALS: Ht 152.4 cm; Wt 77.1 kg
[2018-10-04 11:33] LABS: ABSOLUTE EOSINOPHILS 0.1 thou/uL (0.0-0.7); ABSOLUTE LYMPHOCYTES 1.8 thou/uL (0.8-5.3); ABSOLUTE MONOCYTES 0.6 thou/uL (0.0-1.2); ABSOLUTE NEUTROPHILS 6.1 thou/uL (1.6-8.1); BASOPHILS 0.5 %; EOSINOPHILS 0.6 %; HEMATOCRIT 39.8 % (37.0-47.0); HEMOGLOBIN 13.4 gm/dL (12.0-15.0); MCH 31.3 pg (26.0-34.0); MCHC 33.7 g/dL (28.0-37.0); MCV 92.8 fL (80.0-100.0); NUCLEATED RBCS 0 /100WBC; PLATELET COUNT* 195 thou/uL (150-400); POLYS 70.9 %; RBC 4.28 mil/uL (4.20-5.00); RDW-CV 13.1 % (10.5-14.5); WBC 8.6 thou/uL (4.0-11.0)
[2018-10-04 11:38] LABS: ANION GAP 14 mmol/L (7-16); BUN 23 mg/dL (7-18); CALCIUM 9.7 mg/dL (8.5-10.1); CHLORIDE 98 mmol/L (98-107); CO2 25 mmol/L (21-32); CREATININE 1.9 mg/dL (0.6-1.3); GLUCOSE 295 mg/dL (70-99); POTASSIUM 3.8 mmol/L (3.5-5.1); SODIUM 137 mmol/L (136-145)
[2018-10-04 11:48] LABS: ALBUMIN 3.5 g/dL (3.4-5.0); ALKALINE PHOSPHATASE 87 U/L (46-116); NT-PRO BRAIN NAT PEPTIDE 82 pg/mL (<300); SGOT 23 U/L (15-37); SGPT 24 U/L (30-65); TOTAL BILIRUBIN 0.4 mg/dL (<0.1-1.0); TOTAL PROTEIN 7.7 g/dL (6.4-8.2); TROPONIN-I LEVEL <0.06 ng/mL (<0.06)
[2018-10-04 13:41] LABS: URINE BILIRUBIN NEGATIVE (Negative); URINE BLOOD NEGATIVE (Negative); URINE CLARITY CLEAR; URINE COLOR YELLOW; URINE GLUCOSE-RANDOM 2+ (Negative); URINE KETONES NEGATIVE (Negative); URINE LEUKOCYTES-REFLEX NEGATIVE (Negative); URINE NITRITE-REFLEX NEGATIVE (Negative); URINE PROTEIN NEGATIVE (Negative); URINE UROBILINOGEN 0.2 E.U./dl (0.2-1.0)
[2018-10-04 15:13] VITALS: BP 150/61
--- NOTE | 2018-10-04 16:29 | EKG ---
[place] [address] ELECTROCARDIOGRAM REPORT Name: RODERICK ROBIN [id number] Admission: 10/04/18 Attend Phys: Discharge: 10/04/18 Date of : 12/20/[birth year] Report #: [id number] THIS REPORT FOR: //name// [facility] ED Test Date: 2018-10-04 Test Time: 10:48:03 Pat Name: RODERICK ROBIN Department: Room: Gender: F Gallery Or Museum Attendant: : 1930 Requested By: Naomi Cortes Order Number: [id number] MD: Kirk Amato Measurements Intervals [place] Rate: 99 P: 71 IL: 147 QRS: 44 QRSD: 98 T: QT: 354 QTc: 455 Interpretive Statements Sinus rhythm Borderline T abnormalities, inferior leads Compared to ECG 09/20/2018 13:03:22 T-wave abnormality now present Electronically Signed On 10-04-2018 16:29:41 CASH SPECIALIST by Kirk Amato [email or web address] <ELECTRONICALLY SIGNED> By: Kirk Amato MD, [facility] 10/04/18 1629 1048 1048 Kirk Amato MD, FACC /EPI
== END 2018-10-04 15:13 | disposition home or self-care (01) ==
LOC: M.ERS 10:41
PROVIDERS: Personal Emergency Response Attendant
DX: R07.89 Other chest pain (principal); E78.5 Hyperlipidemia, unspecified; I11.0 Hypertensive heart disease with heart failure; I50.9 Heart failure, unspecified; Z96.653 Presence of artificial knee joint, bilateral; I12.9 Hypertensive chronic kidney disease with stage 1 through stage 4 chronic kidney disease, or unspecified chronic kidney disease; E11.22 Type 2 diabetes mellitus with diabetic chronic kidney disease; N18.4 Chronic kidney disease, stage 4 (severe); E11.40 Type 2 diabetes mellitus with diabetic neuropathy, unspecified; Z90.710 Acquired absence of both cervix and uterus; Z88.8 Allergy status to other drugs, medicaments and biological substances

== ENCOUNTER 2018-12-20 11:19 | Emergency (ER) | payer MEDICARE, OTHER ==
[~2018-12-20] VITALS: Ht 157.5 cm; Wt 81.7 kg
[2018-12-20 12:00] LABS: ABSOLUTE EOSINOPHILS 0.1 thou/uL (0.0-0.7); ABSOLUTE LYMPHOCYTES 1.6 thou/uL (0.8-5.3); ABSOLUTE MONOCYTES 0.6 thou/uL (0.0-1.2); ABSOLUTE NEUTROPHILS 4.5 thou/uL (1.6-8.1); BASOPHILS 0.7 %; EOSINOPHILS 1.1 %; HEMATOCRIT 39.4 % (37.0-47.0); HEMOGLOBIN 13.6 gm/dL (12.0-15.0); LYMPHOCYTES 23.6 %; MCH 31.7 pg (26.0-34.0); MCHC 34.5 g/dL (28.0-37.0); MCV 91.9 fL (80.0-100.0); MONOCYTES 8.3 %; NUCLEATED RBCS 0 /100WBC; PLATELET COUNT* 175 thou/uL (150-400); POLYS 66.3 %; RBC 4.29 mil/uL (4.20-5.00); RDW-CV 13.1 % (10.5-14.5); WBC 6.8 thou/uL (4.0-11.0)
[2018-12-20 12:06] LABS: ANION GAP 9 mmol/L (7-16); BUN 22 mg/dL (7-18); CALCIUM 9.8 mg/dL (8.5-10.1); CHLORIDE 101 mmol/L (98-107); CO2 28 mmol/L (21-32); CREATININE 1.4 mg/dL (0.6-1.3); GLUCOSE 238 mg/dL (70-99); POTASSIUM 4.3 mmol/L (3.5-5.1); SODIUM 138 mmol/L (136-145)
[2018-12-20 12:10] LABS: PROTIME 10.2 Seconds (9.20-11.50)
[2018-12-20 12:16] LABS: ALBUMIN 3.6 g/dL (3.4-5.0); ALKALINE PHOSPHATASE 118 U/L (46-116); LIPASE 153 U/L (73-393); NT-PRO BRAIN NAT PEPTIDE 101 pg/mL (<300); SGOT 21 U/L (15-37); SGPT 23 U/L (30-65); TOTAL BILIRUBIN 0.3 mg/dL (<0.1-1.0); TOTAL PROTEIN 8.1 g/dL (6.4-8.2); TROPONIN-I LEVEL <0.06 ng/mL (<0.06)
[2018-12-20 12:25] LABS: URINE BILIRUBIN NEGATIVE (Negative); URINE BLOOD NEGATIVE (Negative); URINE CLARITY CLEAR; URINE COLOR YELLOW; URINE GLUCOSE-RANDOM 2+ (Negative); URINE KETONES NEGATIVE (Negative); URINE LEUKOCYTES-REFLEX NEGATIVE (Negative); URINE NITRITE-REFLEX NEGATIVE (Negative); URINE PROTEIN NEGATIVE (Negative); URINE SPECIFIC GRAVITY <= 1.005 (1.005-1.030); URINE UROBILINOGEN 0.2 E.U./dl (0.2-1.0)
--- NOTE | 2018-12-20 15:04 | EKG ---
[place] [address] ELECTROCARDIOGRAM REPORT Name: RODERICK ROBIN [id number] Admission: 12/20/18 Attend Phys: Discharge: Date of : 12/20/[birth year] Report #: [id number] THIS REPORT FOR: //name// [facility] ED Test Date: 2018-12-20 Test Time: 11:24:33 Pat Name: RODERICK ROBIN Department: Room: Gender: F Energy Attorney: ALIS : 1930 Requested By: Ady Person Order Number: [id number] MD: Zaheer Salinas Measurements Intervals [place] Rate: 80 P: 41 NM: 186 QRS: 42 QRSD: 103 T: 18 QT: 402 QTc: 464 Interpretive Statements Sinus rhythm Compared to ECG 10/04/2018 10:48:03 T-wave abnormality no longer present Electronically Signed On 12-20-2018 15:04:27 FIELD REIMBURSEMENT MANAGER by Zaheer Salinas [email or web address] <ELECTRONICALLY SIGNED> By: Zaheer Salinas MD, [facility] 12/20/18 1504 1124 1124 Zaheer Salinas MD, FACC /EPI
[2018-12-20 15:18] VITALS: BP 150/64
== END 2018-12-20 15:12 | disposition home or self-care (01) ==
LOC: M.ERS 11:19
PROVIDERS: Emergency Medicine
DX: R07.89 Other chest pain (principal); R60.0 Localized edema; E78.5 Hyperlipidemia, unspecified; I13.0 Hypertensive heart and chronic kidney disease with heart failure and stage 1 through stage 4 chronic kidney disease, or unspecified chronic kidney disease; E11.22 Type 2 diabetes mellitus with diabetic chronic kidney disease; N18.4 Chronic kidney disease, stage 4 (severe); I50.9 Heart failure, unspecified; E11.40 Type 2 diabetes mellitus with diabetic neuropathy, unspecified; Z90.710 Acquired absence of both cervix and uterus; Z96.653 Presence of artificial knee joint, bilateral; Z88.8 Allergy status to other drugs, medicaments and biological substances

== ENCOUNTER 2018-12-24 10:46 | Inpatient (IN) | payer MEDICARE, OTHER ==
[~2018-12-24] VITALS: Ht 157.5 cm; Wt 86.6 kg
[2018-12-24 10:49] VITALS: BP 161/62
[2018-12-24 11:25] LABS: HEMATOCRIT 39.8 % (37.0-47.0); HEMOGLOBIN 13.5 gm/dL (12.0-15.0); NUCLEATED RBCS 0 /100WBC; RBC 4.29 mil/uL (4.20-5.00); WBC 6.4 thou/uL (4.0-11.0)
[2018-12-24 11:27] LABS: ABSOLUTE LYMPHOCYTES 1.6 thou/uL (0.8-5.3); ABSOLUTE MONOCYTES 0.5 thou/uL (0.0-1.2); ABSOLUTE NEUTROPHILS 4.3 thou/uL (1.6-8.1); BASOPHILS 0.6 %; EOSINOPHILS 0.4 %; LYMPHOCYTES 24.5 %; MCH 31.5 pg (26.0-34.0); MCHC 33.9 g/dL (28.0-37.0); MCV 92.9 fL (80.0-100.0); MONOCYTES 7.4 %; MPV 8.9 fl. (7.2-11.1); PLATELET COUNT* 181 thou/uL (150-400); POLYS 67.1 %; RDW-CV 13.1 % (10.5-14.5)
[2018-12-24 11:33] LABS: ANION GAP 14 mmol/L (7-16); BUN 30 mg/dL (7-18); CALCIUM 9.7 mg/dL (8.5-10.1); CHLORIDE 99 mmol/L (98-107); CO2 24 mmol/L (21-32); CREATININE 1.8 mg/dL (0.6-1.3); GLUCOSE 416 mg/dL (70-99); SODIUM 137 mmol/L (136-145)
[2018-12-24 11:39] LABS: ALBUMIN 3.7 g/dL (3.4-5.0); ALKALINE PHOSPHATASE 114 U/L (46-116); SGOT 22 U/L (15-37); SGPT 23 U/L (30-65); TOTAL BILIRUBIN 0.4 mg/dL (<0.1-1.0); TOTAL PROTEIN 8.1 g/dL (6.4-8.2); TROPONIN-I LEVEL <0.06 ng/mL (<0.06)
[2018-12-24 12:25] LABS: URINE BILIRUBIN NEGATIVE (Negative); URINE BLOOD NEGATIVE (Negative); URINE CLARITY CLEAR; URINE COLOR YELLOW; URINE GLUCOSE-RANDOM 3+ (Negative); URINE KETONES NEGATIVE (Negative); URINE LEUKOCYTES-REFLEX NEGATIVE (Negative); URINE NITRITE-REFLEX NEGATIVE (Negative); URINE PROTEIN NEGATIVE (Negative); URINE SPECIFIC GRAVITY <= 1.005 (1.005-1.030); URINE UROBILINOGEN 0.2 E.U./dl (0.2-1.0)
[2018-12-24 14:30] VITALS: BP 153/61
[2018-12-24 15:55] VITALS: BP 154/59
--- NOTE | 2018-12-24 15:57 | NUR ---
ASSUMED CARE OF PT AT 1440. REPORT TAKEN FROM WELL SITE DRILLING ENGINEER KOBE. ASSESSED PT AND DOCUMENTED.PT IS ON CARDIAC MONITER TRACING ST HR 101. PT IS A&O X3 AND HAS NO C/O PAIN. VSS WNL. PT IS ADEBRILE. PT HAS NOTED EDEMA IN BLUE'S AND BLLE'S. LUNGS ARE DIMINISHED. PT IS SAT 99 ON 2L OF 02. PT UP IN BEDSIDE CHAIR WITH CHAIR ALARM ON. SHE IS STEADY ON HER FEET BUT GETS SOA ON EXHERTION. CALL LIGHT IS IN REACH. PT REPORTS HAVING A BM TODAY.
--- NOTE | 2018-12-24 17:51 | NUR ---
PT HAS NS RUNNING AT 500 PER HOUR. SON IS NOW AT BEDSIDE. PT HAS ANXIETY ACCORDING TO SON AND PTS NEIGHBOR. EDUCATION GIVEN ON DEMAND BUT PT UNWILLING TO LEARN. HOURLY ROUNDING COMPLETE.
[2018-12-24 20:10] VITALS: BP 126/54
[2018-12-25] VITALS (7 sets, daily range): BP systolic 129–152; BP diastolic 54–65
--- NOTE | 2018-12-25 02:09 | NUR ---
RECIEVED REPORT AND ASSUMED CARE AT 1900. ENTERTAINMENT MUSICIAN IN PLACE. DIASTOLIC BP SOFT OTHER THAN THAT VITAL SIGNS STABLE. PT DENIES ANY PAIN AT THIS TIME. ASSESSMENT COMPLETED, DISCUSSED PLAN OF CARE, AND PT UNDERSTANDS. BED LOCKED, ALARM ON AND CALL LIGHT WITHIN REACH. FALL PRECAUTIONS IN PLACE. PT IS STANDBY ASSIST. HOURLY ROUNDING DONE AND ALL NEEDS MET. NURSING WILL CONTINUE TO MONITOR.
[2018-12-25 06:51] LABS: ABSOLUTE EOSINOPHILS 0.1 thou/uL (0.0-0.7); ABSOLUTE LYMPHOCYTES 1.4 thou/uL (0.8-5.3); ABSOLUTE MONOCYTES 0.5 thou/uL (0.0-1.2); ABSOLUTE NEUTROPHILS 3.4 thou/uL (1.6-8.1); BASOPHILS 0.7 %; EOSINOPHILS 1.6 %; HEMATOCRIT 34.3 % (37.0-47.0); HEMOGLOBIN 11.8 gm/dL (12.0-15.0); LYMPHOCYTES 26.3 %; MCH 31.6 pg (26.0-34.0); MCHC 34.3 g/dL (28.0-37.0); MCV 92.1 fL (80.0-100.0); MONOCYTES 9.8 %; MPV 8.8 fl. (7.2-11.1); NUCLEATED RBCS 0 /100WBC; PLATELET COUNT* 159 thou/uL (150-400); POLYS 61.6 %; RBC 3.73 mil/uL (4.20-5.00); RDW-CV 13.3 % (10.5-14.5); WBC 5.5 thou/uL (4.0-11.0)
[2018-12-25 07:09] LABS: ANION GAP 7 mmol/L (7-16); BUN 24 mg/dL (7-18); CHLORIDE 104 mmol/L (98-107); CO2 30 mmol/L (21-32); CREATININE 1.4 mg/dL (0.6-1.3); GLUCOSE 210 mg/dL (70-99); MAGNESIUM 1.9 mg/dL (1.8-2.4); POTASSIUM 3.9 mmol/L (3.5-5.1); SODIUM 141 mmol/L (136-145); TROPONIN-I LEVEL <0.06 ng/mL (<0.06)
--- NOTE | 2018-12-25 08:00 | NUR ---
ASSUMED CARE OF PT ASSESSED AND DOCUMENTED. PT IS ON CARDIAC MONITER TRACING SR HR 87. SHE IS A&0 WITH NO C/O PAIN. VSS WNL. PT IS AFEBRILE. SHE HAS NOTED EDEMA IN BLUE'S AND BLLE'S. LUNGS ARE DIMINISHED. SHE IS SAT 97 ON 2L OF O2. PT CONT TO REDUSE SCDS. BED ALARM CIGARETTE MAKING MACHINE CATCHER LIGHT IS IN REACH. WM.
--- NOTE | 2018-12-25 09:37 | NUR ---
CALLED PHARMACY SPOKE WITH NOHEMI. SHE WILL BRING UP AND LOAD INSULLIN AND EYE GTTS.
--- NOTE | 2018-12-25 12:18 | EKG ---
[place] [address] ELECTROCARDIOGRAM REPORT Name: RODERICK ROBIN Room: [address] ADM IN .R.#: [id number] Admission: 12/24/18 Attend Phys: Yazmin Bethea MD Discharge: Date of : 12/20/30 Report #: [id number] THIS REPORT FOR: //name// [facility] ED Test Date: 2018-12-24 Test Time: 10:57:55 Pat Name: RODERICK ROBIN Department: Room: [facility] Gender: F Lead Level Designer: Nolan NAJERA : 1930 Requested By: Naomi Enrique Order Number: [id number] MD: Zaheer Salinas Measurements Intervals [place] Rate: 102 P: 53 OR: 168 QRS: 34 QRSD: 98 T: -32 QT: 369 QTc: 481 Interpretive Statements Sinus tachycardia Abnormal R-wave progression, early transition Inferior infarct, age indeterminate Compared to ECG 12/20/2018 11:24:33 Sinus rhythm no longer present Electronically Signed On 12-25-2018 12:17:51 CRIPPLE CUTTER by Zaheer Salinas [email or web address] <ELECTRONICALLY SIGNED> By: Zaheer Salinas MD, FAC 12/25/18 1217 1057 1057 Zaheer Salinas MD, [facility] /EPI
[2018-12-26 03:48] VITALS: BP 148/66
--- NOTE | 2018-12-26 05:27 | NUR ---
ASSUMED CARE OF PT AFTER REPORT AT 1930. PT A&OX4. VSS. PHYSICAL ASSESSMENT COMPLETED AND CHARTED. PT ON RA WITH 92% O2 SAT. PT TRACING SR BBB ON TELE. PT UPSTANDBY TO RESTROOM. PT C/O OF BILATERAL SHOULDER PAIN- REFUSED PAIN MEDS LAST NIGHT. PT RESTED WELL ON BED. CALL LIGHT WITHIN REACH. BED IN LOW POSITION.BED ALARM ON.
[2018-12-26 08:00] VITALS: BP 160/58
--- NOTE | 2018-12-26 10:09 | NUR ---
ASSUMED CARE OF PATIENT THIS AM AT 0730. PATIENT IS ALERT AND ORIENTED X 4. SHE DENIES PAIN THIS AM. TELE SHOWS NSR. PATIENT TAKING DIET WELL. SHE PLANS TO DISCHARGE TODAY. PATIENT IS UP WITH STANDBY ASSIST.
--- NOTE | 2018-12-26 11:00 | EKG ---
[place] [address] ELECTROCARDIOGRAM REPORT Name: RODERICK ROBIN Room: [address] ADM IN .R.#: [id number] Admission: 12/24/18 Attend Phys: Yazmin Bethea MD Discharge: Date of : 12/20/30 Report #: [id number] THIS REPORT FOR: //name// [facility] Test Date: 2018-12-25 Test Time: 05:29:46 Pat Name: RODERICK ROBIN Department: Room: [address] Gender: F Computer Systems Architect: darcie : 1930 Requested By: Yazmin Bethea Order Number: [id number] Reading MD: Zaheer Salinas Measurements Intervals [place] Rate: 79 P: 67 SC: 181 QRS: 47 QRSD: 101 T: 9 QT: 410 QTc: 471 Interpretive Statements Sinus rhythm Abnormal R-wave progression, early transition Baseline wander in lead(s) V1 Electronically Signed On 12-26-2018 11:00:39 GOVERNMENT SERVICE EXECUTIVE by Zaheer Salinas [email or web address] <ELECTRONICALLY SIGNED> By: Zaheer Salinas MD, [facility] 12/26/18 1100 0529 0529 Zaheer Salinas MD, FACC /EPI
[2018-12-26] MEDS ORDERED: JANUVIA25 MG PO (11:41)
[2018-12-26] MEDS ORDERED: LASIX 20 MG TAB20 MG PO (11:41)
[2018-12-26 11:51] VITALS: BP 160/58
[2018-12-26 12:01] VITALS: BP 153/74
--- NOTE | 2018-12-26 12:27 | NUR ---
MET WITH PT AND SPOKE WITH SON/RAUL OVER THE PHONE. PT LIVES ALONE. HAS CAREGIVER 2HR/DAY FOR 3 DAYS A WEEK. HER SON IS SUPPORT IS A NEIGHBOR. THEY TAKE HER TO APPTS AND ERRANDS. PT HAS HAD HH WITH [facility] IN THE PAST AND WANTS TO USE THEM AGAIN. PT USES CANE AND IS FAIRLY INDEPENDENT AT HOME. SON VOICED THAT HE WAS IN AGREEMENT WITH HER RETURNING HOME. HE HAS DISCUSSED CHANGING HER LIVING SITUATION WITH HER BUT PT DECLINES AND WANTS TO STAY IN HER HOME. CALLED AND FAXED DC ORDERS TO MYLA /[facility]
[2018-12-26 12:46] VITALS: BP 160/58
== END 2018-12-26 14:32 | disposition home health service (06) | DRG 313 ==
LOC: M.ERS 10:46 → M.TBA-ER 12:48 → M.2W 12:48
PROVIDERS: Emergency Medicine Emergency Medical Services; Physician Assistant; ADMIT Family Medicine
DX: R07.89 Other chest pain (principal); I13.0 Hypertensive heart and chronic kidney disease with heart failure and stage 1 through stage 4 chronic kidney disease, or unspecified chronic kidney disease; R65.10 Systemic inflammatory response syndrome (SIRS) of non-infectious origin without acute organ dysfunction; N18.4 Chronic kidney disease, stage 4 (severe); N17.9 Acute kidney failure, unspecified; E87.2 Acidosis; I50.32 Chronic diastolic (congestive) heart failure; M19.90 Unspecified osteoarthritis, unspecified site; E86.0 Dehydration; I87.2 Venous insufficiency (chronic) (peripheral); R74.0 Nonspecific elevation of levels of transaminase and lactic acid dehydrogenase [LDH]; E11.65 Type 2 diabetes mellitus with hyperglycemia; E78.5 Hyperlipidemia, unspecified; E11.40 Type 2 diabetes mellitus with diabetic neuropathy, unspecified; E11.22 Type 2 diabetes mellitus with diabetic chronic kidney disease; Z96.653 Presence of artificial knee joint, bilateral; Z98.42 Cataract extraction status, left eye; Z98.41 Cataract extraction status, right eye; Z90.710 Acquired absence of both cervix and uterus; Z79.02 Long term (current) use of antithrombotics/antiplatelets; Z79.899 Other long term (current) drug therapy; Z88.8 Allergy status to other drugs, medicaments and biological substances; Z82.49 Family history of ischemic heart disease and other diseases of the circulatory system

== ENCOUNTER 2019-08-26 13:06 | Inpatient (IN) | payer MEDICARE, OTHER ==
[~2019-08-26] VITALS: Ht 162.6 cm; Wt 84.8 kg
[~2019-08-26 13:06] MED LIST changes: +JANUVIA25 MG PO; +LASIX 20 MG TAB20 MG PO
[2019-08-26 13:11] VITALS: BP 177/82
[2019-08-26] MEDS ORDERED: MIRAPEX 0.250.25 M1 PO (13:28)
[2019-08-26 14:02] LABS: ABSOLUTE EOSINOPHILS 0.1 thou/uL (0.0-0.7); ABSOLUTE LYMPHOCYTES 1.5 thou/uL (0.8-5.3); ABSOLUTE MONOCYTES 0.6 thou/uL (0.0-1.2); ABSOLUTE NEUTROPHILS 4.4 thou/uL (1.6-8.1); BASOPHILS 0.7 %; EOSINOPHILS 0.9 %; HEMATOCRIT 37.1 % (37.0-47.0); HEMOGLOBIN 12.8 gm/dL (12.0-15.0); LYMPHOCYTES 22.5 %; MCH 30.9 pg (26.0-34.0); MCHC 34.5 g/dL (28.0-37.0); MCV 89.4 fL (80.0-100.0); MONOCYTES 8.5 %; MPV 8.7 fl. (7.2-11.1); NUCLEATED RBCS 0 /100WBC; PLATELET COUNT* 191 thou/uL (150-400); POLYS 67.4 %; RBC 4.15 mil/uL (4.20-5.00); RDW-CV 13.4 % (10.5-14.5); WBC 6.6 thou/uL (4.0-11.0)
[2019-08-26 14:16] LABS: ANION GAP 12 mmol/L (7-16); BUN 29 mg/dL (7-18); CALCIUM 9.1 mg/dL (8.5-10.1); CHLORIDE 101 mmol/L (98-107); CO2 27 mmol/L (21-32); CREATININE 1.4 mg/dL (0.6-1.3); GLUCOSE 210 mg/dL (70-99); POTASSIUM 4.2 mmol/L (3.5-5.1); SODIUM 140 mmol/L (136-145)
[2019-08-26 14:27] LABS: ALBUMIN 3.6 g/dL (3.4-5.0); ALKALINE PHOSPHATASE 117 U/L (46-116); LIPASE 128 U/L (73-393); NT-PRO BRAIN NAT PEPTIDE 211 pg/mL (<300); SGOT 15 U/L (15-37); SGPT 20 U/L (30-65); TOTAL BILIRUBIN 0.4 mg/dL (<0.1-1.0); TOTAL PROTEIN 7.5 g/dL (6.4-8.2); TROPONIN-I LEVEL <0.06 ng/mL (<0.06)
[2019-08-26 16:39] VITALS: BP 165/68
[2019-08-26 18:05] VITALS: BP 153/71
--- NOTE | 2019-08-26 19:40 | NUR ---
I ASSUMED CARE OF THE PATIENT AN ER ADMISSION AT 1700. SHE IS ALERT AND ORIENTED X4 AND IS UP WITH SBA. SHE USES A CANE AT HOME. ADMISSION IS COMPLETED. MONITOR IS PLACED. PATIENT LIVES AT THE [facility]. SHE IS PLEASANT. SHE RECENTLY SOLD THE HOME AND THAT SHE AND HER BUILT 17 YEARS AGO AND MOVED TO THE [facility]. SHE GETS TEARFUL DISCUSSING IT. PATIENT IS SEEN BY DR COOPER AND HOME MEDS ARE INITIATED. HOURLY ROUNDING IS COMPLETED AND PATIENT NEEDS ARE MET. WILL CONTINUE TO MONITOR.
[2019-08-26 20:00] VITALS: BP 141/57
[2019-08-27] VITALS: BP 143/44
[2019-08-27 04:00] VITALS: BP 142/52
[2019-08-27 04:20] LABS: ABSOLUTE EOSINOPHILS 0.1 thou/uL (0.0-0.7); ABSOLUTE MONOCYTES 0.5 thou/uL (0.0-1.2); BASOPHILS 0.7 %; EOSINOPHILS 1.8 %; LYMPHOCYTES 22.2 %; MCH 30.9 pg (26.0-34.0); MCHC 34.2 g/dL (28.0-37.0); MCV 90.2 fL (80.0-100.0); MONOCYTES 11.2 %; MPV 8.4 fl. (7.2-11.1); NUCLEATED RBCS 0 /100WBC; PLATELET COUNT* 171 thou/uL (150-400); POLYS 64.1 %; RBC 3.88 mil/uL (4.20-5.00); RDW-CV 13.4 % (10.5-14.5); WBC 4.7 thou/uL (4.0-11.0)
[2019-08-27 04:34] LABS: CALCIUM 8.9 mg/dL (8.5-10.1); CREATININE 1.2 mg/dL (0.6-1.3); POTASSIUM 4.3 mmol/L (3.5-5.1)
--- NOTE | 2019-08-27 05:10 | NUR ---
ASSUMED PT CARE AT 1915. SR 1D ON SURVEY CHIEF. PT VOICED NO CONCERNS THIS SHIFT. HOURLY ROUNDING COMPLETED. HIGH FALL PRECAUTIONS IN PLACE. DENIES CHEST PAIN THIS SHIFT. CALL LIGHT WITHIN REACH.
[2019-08-27 08:00] VITALS: BP 158/60
[2019-08-27 11:17] VITALS: BP 132/52
[2019-08-27 12:30] VITALS: BP 132/52
[2019-08-27 14:30] VITALS: BP 132/52
--- NOTE | 2019-08-27 16:55 | EKG ---
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1930 Requested By: Maximo Erickson Order Number: [id number] MD: Jae De La Vega Measurements Intervals [place] Rate: 100 P: 74 AR: 172 QRS: 51 QRSD: 97 T: 12 QT: 352 QTc: 454 Interpretive Statements Sinus tachycardia Possible inferior infarct, old Compared to ECG 12/25/2018 05:29:46 Myocardial infarct finding now present Sinus rhythm no longer present Electronically Signed On 08-27-2019 16:55:34 CDT by Jae De La Vega [email or web address] <ELECTRONICALLY SIGNED> By: Jae De La Vega MD, [facility] 08/27/19 1655 1308 1308 Jae De La Vega MD, [facility] /EPI
== END 2019-08-27 14:25 | disposition home or self-care (01) | DRG 313 ==
LOC: M.ERS 13:06 → M.TBA-ER 14:34 → M.2W 17:00
PROVIDERS: Emergency Medicine Emergency Medical Services; ADMIT Internal Medicine
DX: R07.89 Other chest pain (principal); N18.4 Chronic kidney disease, stage 4 (severe); I13.0 Hypertensive heart and chronic kidney disease with heart failure and stage 1 through stage 4 chronic kidney disease, or unspecified chronic kidney disease; M19.90 Unspecified osteoarthritis, unspecified site; E11.40 Type 2 diabetes mellitus with diabetic neuropathy, unspecified; Z96.653 Presence of artificial knee joint, bilateral; E11.22 Type 2 diabetes mellitus with diabetic chronic kidney disease; Z88.8 Allergy status to other drugs, medicaments and biological substances; Z90.710 Acquired absence of both cervix and uterus; Z98.42 Cataract extraction status, left eye; Z98.41 Cataract extraction status, right eye; Z82.49 Family history of ischemic heart disease and other diseases of the circulatory system; Z79.82 Long term (current) use of aspirin; Z79.899 Other long term (current) drug therapy; I50.9 Heart failure, unspecified

== ENCOUNTER 2019-12-11 12:30 | Inpatient (IN) | payer MEDICARE, OTHER ==
[~2019-12-11] VITALS: Ht 157.5 cm; Wt 88.7 kg
[~2019-12-11 12:30] MED LIST changes: +MIRAPEX 0.250.25 M1 PO
[2019-12-11 12:31] VITALS: BP 158/77
[2019-12-11 12:59] LABS: ABSOLUTE LYMPHOCYTES 1.8 thou/uL (0.8-5.3); ABSOLUTE MONOCYTES 0.3 thou/uL (0.0-1.2); BASOPHILS 0.8 %; EOSINOPHILS 0.8 %; HEMATOCRIT 36.5 % (37.0-47.0); HEMOGLOBIN 12.7 gm/dL (12.0-15.0); LYMPHOCYTES 34.2 %; MCH 31.2 pg (26.0-34.0); MCHC 34.8 g/dL (28.0-37.0); MCV 89.8 fL (80.0-100.0); MONOCYTES 6.1 %; MPV 9.1 fl. (7.2-11.1); NUCLEATED RBCS 0 /100WBC; PLATELET COUNT* 182 thou/uL (150-400); POLYS 58.1 %; RBC 4.07 mil/uL (4.20-5.00); RDW-CV 13.1 % (10.5-14.5); WBC 5.2 thou/uL (4.0-11.0)
[2019-12-11 13:07] LABS: CREATININE 1.5 mg/dL (0.6-1.3); POTASSIUM 3.8 mmol/L (3.5-5.1)
[2019-12-11 13:12] LABS: ALBUMIN 3.5 g/dL (3.4-5.0); TOTAL BILIRUBIN 0.4 mg/dL (<0.1-1.0); TOTAL PROTEIN 7.6 g/dL (6.4-8.2)
[2019-12-11 15:01] VITALS: BP 145/85
--- NOTE | 2019-12-11 15:35 | EKG ---
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1930 Requested By: Maximo Erickson Order Number: [id number] MD: Zaheer Salinas Measurements Intervals [place] Rate: 100 P: 77 SC: 168 QRS: 11 QRSD: 95 T: 3 QT: 381 QTc: 492 Interpretive Statements Sinus tachycardia Probable inferior infarct, old Consider anterolateral infarct Baseline wander in lead(s) I,III,aVL Compared to ECG 08/26/2019 13:08:24 No significant changes Electronically Signed On 12-11-2019 15:34:57 MAINTENANCE MAN by Zaheer Salinas [email or web address] <ELECTRONICALLY SIGNED> By: Zaheer Salinas MD, FAC 12/11/19 1534 1235 1235 Zaheer Salinas MD, [facility] /EPI
[2019-12-11 16:00] VITALS: BP 170/68
--- NOTE | 2019-12-11 16:12 | 2DMMODE ---
[place] [address] 2 D/M-MODE ECHOCARDIOGRAM Name: RODERICK ROBIN Room: [address] IN [facility]#: [id number] Admission: 12/11/19 Attend Phys: Gian Arceo Discharge: Date of : 12/20/[birth year] Date of Service: 12/11/19 1611 Report #: [id number] THIS REPORT FOR: //name// APPROVED REPORT Study performed: 12/11/2019 15:31:40 EXAM: Comprehensive 2D, Doppler, and color-flow Echocardiogram Patient Location: In-Patient Room #: [facility] Status: routine BSA: 1.78 HR: 98 bpm BP: 145/85 mmHg Rhythm: NSR Other Information Study Quality: Good Indications Dyspnea 2D Dimensions IVSd: 15.50 (7-11mm) LVOT Diam: 19.25 (18-24mm) LVDd: 47.10 mm PWd: 11.49 (7-11mm) Ascending Ao: 28.50 (22-36mm) LVDs: 24.40 (25-40mm) Aortic Root: 27.39 mm Volumes Left Atrial Volume (Systole) LA ESV Index: 28.70 mL/m2 Aortic Valve AoV Peak Jerry.: 2.09 m/s AO Peak Gr.: 17.47 mmHg LVOT Max P.48 mmHg AO Mean Gr.: 10.62 mmHg LVOT Mean P.09 mmHg LVOT Max V: 1.17 m/s AO V2 VTI: 43.24 cm LVOT Mean V: 0.83 m/s MARY (VTI): 1.66 cm2 LVOT V1 VTI: 24.70 cm Mitral Valve E/A Ratio: 0.79 MV Decel. Time: 194.76 ms MV E Max Jerry.: 1.07 m/[place] [address] 2 D/M-MODE ECHOCARDIOGRAM Name: RODERICK ROBIN Room: [address] [place] ..#: [id number] Admission: 12/11/19 Attend Phys: Gian Arceo Discharge: Date of : 12/20/30 Date of Service: 12/11/19 1611 Report #: [id number] MV PHT: 56.48 ms MVA (PHT): 3.90 cm2 TDI E/Lateral E': 11.89 Lateral E' Jerry.: 0.09 m/s Pulmonary Valve PV Peak Jerry.: 1.09 m/s PV Peak Gr.: 4.73 mmHg Left Ventricle The left ventricle is normal size. There is normal LV segmental wall motion. Mild concentric left ventricular hypertrophy. Left ventricular systolic function is normal. The left ventricular ejection fraction is within the normal range. LVEF is 65-70%. Grade I - abnormal relaxation pattern. Right Ventricle The right ventricle is normal size. The right ventricular systolic function is normal. Atria Left atrium is mildly dilated. The right atrium size is normal. Aortic Valve Moderate aortic valve sclerosis. No aortic regurgitation is present. Mild aortic stenosis. Mitral Valve There is mitral annular calcification. There is no mitral valve regurgitation noted. No evidence of mitral valve stenosis. Tricuspid Valve The tricuspid valve is normal in structure. Unable to assess PA pressure. Trace tricuspid regurgitation. Pulmonic Valve The pulmonary valve is normal in structure. There is no pulmonic valvular regurgitation. Great Vessels The aortic root is normal in size. IVC is normal in size and collapses >50% with [place] [address] 2 D/M-MODE ECHOCARDIOGRAM Name: RODERICK ROBIN Room: [address] [place] .R.#: [id number] Admission: 12/11/19 Attend Phys: Gian Arceo Discharge: Date of : 12/20/[birth year] Date of Service: 12/11/191610 Report #: [id number] There is no pericardial effusion. <Conclusion> Mild concentric left ventricular hypertrophy. LVEF is 65-70%. Left atrium is mildly dilated. Moderate aortic valve sclerosis. <ELECTRONICALLY SIGNED> By: Zaheer Salinas MD, [facility] 12/11/191610 10 10 Zaheer Salinas MD, FACC /INF
--- NOTE | 2019-12-11 19:23 | NUR ---
ASSUSMED CARE OF PT APPROX 1530. PTS DAUGHTER IN LAW AT BEDSIDE. DAUGHTER IN LAW ASSISTED WITH ASSESSMENT QUESTIONS. PT UP TO BATHROOM WITH STANDBY ASSISTANCE. DISCUSSED CARE WITH PT AND MEDICATIONS. VERBALIZED UNDERSTANDING.
[2019-12-11 20:00] VITALS: BP 148/58
[2019-12-12 00:54] VITALS: BP 146/53
[2019-12-12 04:00] VITALS: BP 149/63
--- NOTE | 2019-12-12 09:16 | NUR ---
ASSUMED PATIENT CARE AT 1900. ASSESSMENT COMPLETED CHARTED. PATIENT IS NSR ON THE MONITOR. HOURLY ROUNDING IN PLACE FOR PATIENT SAFETY. CLWR.
[2019-12-12 09:37] LABS: ABSOLUTE EOSINOPHILS 0.1 thou/uL (0.0-0.7); ABSOLUTE LYMPHOCYTES 1.3 thou/uL (0.8-5.3); ABSOLUTE MONOCYTES 0.4 thou/uL (0.0-1.2); ABSOLUTE NEUTROPHILS 3.7 thou/uL (1.6-8.1); BASOPHILS 0.6 %; EOSINOPHILS 1.2 %; HEMATOCRIT 35.1 % (37.0-47.0); HEMOGLOBIN 12.2 gm/dL (12.0-15.0); LYMPHOCYTES 23.6 %; MCH 31.2 pg (26.0-34.0); MCHC 34.8 g/dL (28.0-37.0); MCV 89.6 fL (80.0-100.0); MONOCYTES 7.1 %; MPV 8.7 fl. (7.2-11.1); NUCLEATED RBCS 0 /100WBC; PLATELET COUNT* 170 thou/uL (150-400); POLYS 67.5 %; RBC 3.91 mil/uL (4.20-5.00); RDW-CV 13.4 % (10.5-14.5); WBC 5.5 thou/uL (4.0-11.0)
[2019-12-12 09:54] LABS: ALBUMIN 3.2 g/dL (3.4-5.0); CALCIUM 8.6 mg/dL (8.5-10.1); CREATININE 1.3 mg/dL (0.6-1.3); POTASSIUM 4.2 mmol/L (3.5-5.1); TOTAL BILIRUBIN 0.4 mg/dL (<0.1-1.0)
--- NOTE | 2019-12-12 10:32 | NUR ---
CM ASSESSMENT: VISITED WITH PT IN ROOM. PT LIVES AT THE [facility] AND USES A WALKER. SHE DOES HER OWN MEDICATIONS. THEY PROVIDE MEALS. STATES [place] WOULD LIKE [place] BUT DOES NOT HAVE A PREFERENCE OF COMPANY. CM WILL CONTINUE TO FOLLOW
[2019-12-12 13:22] VITALS: BP 141/48
--- NOTE | 2019-12-12 16:25 | NUR ---
INITAL ASSESSMENT COMPLETED CHARTED. VSS. TRACING SR ON MONITOR. PT ALERT & ORIENTED WITH PERIODS OF FORGETFULNESS. REFER TO COMPUTER CHARTING FOR FURTHER DETAILS. HOURLY ROUNDING AND FALL PRECAUTIONS IN PLACE FOR PT SAFETY. CLWR
[2019-12-12 17:23] VITALS: BP 106/40
[2019-12-12 20:00] VITALS: BP 135/48
[2019-12-13] VITALS: BP 136/53
[2019-12-13 04:00] VITALS: BP 138/50
[2019-12-13 05:42] LABS: HEMATOCRIT 32.4 % (37.0-47.0); HEMOGLOBIN 11.3 gm/dL (12.0-15.0); MCH 31.3 pg (26.0-34.0); MCHC 34.9 g/dL (28.0-37.0); MCV 89.5 fL (80.0-100.0); MPV 8.5 fl. (7.2-11.1); RBC 3.62 mil/uL (4.20-5.00); RDW-CV 13.3 % (10.5-14.5); WBC 5.9 thou/uL (4.0-11.0)
[2019-12-13 05:58] LABS: ALBUMIN 2.9 g/dL (3.4-5.0); CALCIUM 8.7 mg/dL (8.5-10.1); CREATININE 1.2 mg/dL (0.6-1.3); POTASSIUM 4.1 mmol/L (3.5-5.1); TOTAL BILIRUBIN 0.4 mg/dL (<0.1-1.0); TOTAL PROTEIN 6.5 g/dL (6.4-8.2)
[2019-12-13 08:00] VITALS: BP 141/39
--- NOTE | 2019-12-13 08:08 | NUR ---
ASSUMED PATIENT CARE AT 1900. ASSESSMENT COMPLETED CHARTED. PATIENT IS NSR ON THE MONITOR. HOURLY ROUNDING IN PLACE FOR PATIENT SAFETY. CLWR.
[2019-12-13 10:45] VITALS: BP 112/48
--- NOTE | 2019-12-13 13:23 | NUR ---
[facility], [facility] HH orders. Updated [facility] of dispo and faxed orders.
[2019-12-13] MEDS ORDERED: LEVAQUIN 500 M500 M3 PO (14:34)
--- NOTE | 2019-12-13 15:51 | NUR ---
ASSUMED PT CARE AT 0730. ASSESSMENT COMPLETED CHARTED. ABLE TO MAKE NEEDS KNOWN. NO C/O PAIN OR DISCOMFORT. UP WITH SBA. DISCHARGE APPROVED AND DISCHARGE PAPERWORK COMPLETED. WENT OVER WITH PT AND GAVE PT SCRIPT AND DRUG INFO. PT WAS UPSET THAT SHE WASNT ABLE TO LEAVE YET AND STATED "IT SHOULDNT TAKE YOU THIS LONG TO FINISH". IV AND HEART MONITOR REMOVED. PT WAS WHEELED DOWN TO FRONT BY FOOD DEMONSTRATOR TO DAUGHTERS CAR. TOOK ALL BELONGINGS WITH PT.
== END 2019-12-13 15:30 | disposition home health service (06) | DRG 202 ==
LOC: M.ERS 12:30 → M.2W 14:16 → M.TBA-ER 14:16 → M.2W 15:13
PROVIDERS: Emergency Medicine Emergency Medical Services; ADMIT Internal Medicine
DX: J20.9 Acute bronchitis, unspecified (principal); I50.31 Acute diastolic (congestive) heart failure; I13.0 Hypertensive heart and chronic kidney disease with heart failure and stage 1 through stage 4 chronic kidney disease, or unspecified chronic kidney disease; N17.9 Acute kidney failure, unspecified; N18.4 Chronic kidney disease, stage 4 (severe); E87.2 Acidosis; G31.84 Mild cognitive impairment of uncertain or unknown etiology; Z96.653 Presence of artificial knee joint, bilateral; M19.90 Unspecified osteoarthritis, unspecified site; I35.8 Other nonrheumatic aortic valve disorders; E11.22 Type 2 diabetes mellitus with diabetic chronic kidney disease; E78.5 Hyperlipidemia, unspecified; E11.40 Type 2 diabetes mellitus with diabetic neuropathy, unspecified; Z98.42 Cataract extraction status, left eye; Z98.41 Cataract extraction status, right eye; Z79.899 Other long term (current) drug therapy; Z88.8 Allergy status to other drugs, medicaments and biological substances; Z82.49 Family history of ischemic heart disease and other diseases of the circulatory system; Z79.82 Long term (current) use of aspirin; Z79.2 Long term (current) use of antibiotics; Z90.710 Acquired absence of both cervix and uterus; Z79.51 Long term (current) use of inhaled steroids

== ENCOUNTER 2020-04-16 12:22 | Emergency (ER) | payer MEDICARE, OTHER ==
[~2020-04-16] VITALS: Ht 157.5 cm; Wt 77.1 kg
[~2020-04-16 12:22] MED LIST changes: +LEVAQUIN 500 M500 M3 PO
[2020-04-16 13:08] LABS: ABSOLUTE BASOPHILS 0.1 thou/uL (0.0-0.2); ABSOLUTE LYMPHOCYTES 1.5 thou/uL (0.8-5.3); ABSOLUTE MONOCYTES 0.5 thou/uL (0.0-1.2); ABSOLUTE NEUTROPHILS 4.6 thou/uL (1.6-8.1); BASOPHILS 0.8 %; EOSINOPHILS 0.7 %; HEMATOCRIT 37.7 % (37.0-47.0); LYMPHOCYTES 22.8 %; MCH 31.1 pg (26.0-34.0); MCHC 34.6 g/dL (28.0-37.0); MCV 89.9 fL (80.0-100.0); MONOCYTES 6.8 %; MPV 9.2 fl. (7.2-11.1); NUCLEATED RBCS 0 /100WBC; PLATELET COUNT* 193 thou/uL (150-400); POLYS 68.9 %; RBC 4.19 mil/uL (4.20-5.00); RDW-CV 13.3 % (10.5-14.5); WBC 6.7 thou/uL (4.0-11.0)
[2020-04-16 13:16] LABS: URINE BILIRUBIN NEGATIVE (Negative); URINE BLOOD NEGATIVE (Negative); URINE CLARITY CLEAR; URINE COLOR YELLOW; URINE GLUCOSE-RANDOM 3+ (Negative); URINE KETONES NEGATIVE (Negative); URINE LEUKOCYTES-REFLEX TRACE (Negative); URINE NITRITE-REFLEX NEGATIVE (Negative); URINE PROTEIN NEGATIVE (Negative); URINE UROBILINOGEN 0.2 E.U./dl (0.2-1.0)
[2020-04-16 13:17] LABS: APTT 24.3 Seconds (25.0-31.3); PROTIME 10.5 Seconds (9.20-11.50)
[2020-04-16 13:18] LABS: CALCIUM 9.4 mg/dL (8.5-10.1); CREATININE 1.5 mg/dL (0.6-1.3); POTASSIUM 3.8 mmol/L (3.5-5.1)
[2020-04-16 13:20] LABS: BE 0.1 mmol/L (-2 to +3); PCO2 33.3 mmHg (35.0-45.0); PO2 66.9 mmHg (75.0-100.0); pH 7.461 (7.340-7.450)
[2020-04-16 13:26] LABS: BACTERIA-REFLEX 1-9 Few /HPF (None Seen); CASTS None Seen /LPF (None Seen); CRYSTALS None Seen /LPF (None Seen); MUCUS None Seen strn/LPF (None Seen); SQUAMOUS 4-10 Moderate /LPF (0-3); URINE RBC 0-2 Rare /HPF (0-2); URINE WBC-REFLEX 0-5 Rare /HPF (0-5)
[2020-04-16 13:28] LABS: ALBUMIN 3.6 g/dL (3.4-5.0); MAGNESIUM 1.8 mg/dL (1.8-2.4); TOTAL BILIRUBIN 0.4 mg/dL (<0.1-1.0); TOTAL PROTEIN 8.2 g/dL (6.4-8.2)
[2020-04-16 15:43] VITALS: BP 149/69
--- NOTE | 2020-04-16 16:29 | EKG ---
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 : 1930 Requested By: Naomi Cortes Order Number: [id number] Reading MD: Obdulio Burgos Measurements Intervals [place] Rate: 89 P: 54 NE: 154 QRS: 31 QRSD: 103 T: 39 QT: 372 QTc: 453 Interpretive Statements Sinus rhythm Abnormal R-wave progression, early transition Probable inferior infarct, old Compared to ECG 12/11/2019 12:35:00 Sinus tachycardia no longer present Myocardial infarct finding still present Electronically Signed On 04-16-2020 16:27:27 CDT by Obdulio Burgos [email or web address] <ELECTRONICALLY SIGNED> By: Obdulio Burgos MD, [facility] 04/16/20 1627 1241 1241 Obdulio Burgos MD, [facility] /EPI
== END 2020-04-16 15:44 | disposition home or self-care (01) ==
LOC: M.ERS 12:22
PROVIDERS: Personal Emergency Response Attendant
DX: J44.9 Chronic obstructive pulmonary disease, unspecified (principal); F41.9 Anxiety disorder, unspecified; I13.0 Hypertensive heart and chronic kidney disease with heart failure and stage 1 through stage 4 chronic kidney disease, or unspecified chronic kidney disease; I50.9 Heart failure, unspecified; E11.22 Type 2 diabetes mellitus with diabetic chronic kidney disease; E78.5 Hyperlipidemia, unspecified; E11.40 Type 2 diabetes mellitus with diabetic neuropathy, unspecified; N18.4 Chronic kidney disease, stage 4 (severe); Z90.710 Acquired absence of both cervix and uterus; Z96.653 Presence of artificial knee joint, bilateral; Z88.8 Allergy status to other drugs, medicaments and biological substances

== ENCOUNTER 2020-05-26 13:59 | Emergency (ER) | payer MEDICARE, OTHER ==
[~2020-05-26] VITALS: Ht 167.6 cm; Wt 86.2 kg
[2020-05-26] MEDS ORDERED: JANUVIA25 MG PO (14:36)
[2020-05-26] MEDS ORDERED: AMARYL2 M1 PO (14:37)
[2020-05-26] MEDS ORDERED: NORCO 5-325 TA1 EAC2 PO (15:43)
[2020-05-26 16:03] VITALS: BP 135/74
--- NOTE | 2020-05-27 15:38 | EKG ---
[place] [address] ELECTROCARDIOGRAM REPORT Name: RODERICK ROBIN Room: [facility]#: [id number] Admission: 05/26/20 Attend Phys: Discharge: 05/26/20 Date of : [birth year] Date of Service: 05/26/20 1406 Report #: [id number] THIS REPORT FOR: //name// 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: [facility] 1930 Requested By: Maximo Erickson Order Number: [id number] Gurinder MD: Obdulio Burgos Measurements Intervals [place] Rate: 102 P: 117 MT: 167 QRS: 144 QRSD: 98 T: 192 QT: 386 QTc: 503 Interpretive Statements Right and left arm electrode reversal, interpretation assumes no reversal Sinus tachycardia Inferior infarct, old Lateral leads are also involved Prolonged QT interval Artifact in lead(s) I,III,aVL Compared to ECG 04/16/2020 12:41:44 Prolonged QT interval now present Sinus rhythm no longer present Myocardial infarct finding still present Right arm left arm lead switch has occurred Electronically Signed On 05-27-2020 15:37:46 CDT by Obdulio Burgos [email or web address] <ELECTRONICALLY SIGNED> By: Obdulio Burgos MD, [facility] 05/27/20 1537 1406 1406 Obdulio Burgos MD, [facility] /EPI
== END 2020-05-26 16:04 | disposition home or self-care (01) ==
LOC: M.ERS 13:59
DX: S52.612A Displaced fracture of left ulna styloid process, initial encounter for closed fracture (principal); S01.81XA Laceration without foreign body of other part of head, initial encounter; M25.562 Pain in left knee; I13.0 Hypertensive heart and chronic kidney disease with heart failure and stage 1 through stage 4 chronic kidney disease, or unspecified chronic kidney disease; E11.22 Type 2 diabetes mellitus with diabetic chronic kidney disease; E78.5 Hyperlipidemia, unspecified; N18.4 Chronic kidney disease, stage 4 (severe); Z90.710 Acquired absence of both cervix and uterus; Z96.653 Presence of artificial knee joint, bilateral; Z88.8 Allergy status to other drugs, medicaments and biological substances; W05.2XXA Fall from non-moving motorized mobility scooter, initial encounter; Y93.89 Activity, other specified; Y92.89 Other specified places as the place of occurrence of the external cause; Y99.8 Other external cause status

== ENCOUNTER → 2020-06-06 | Outpatient (CLI) | payer MEDICARE, OTHER ==
[~2020-06-06] MED LIST changes: +AMARYL2 M1 PO; +NORCO 5-325 TA1 EAC2 PO
== END ==
LOC: M.RAD 14:34
PROVIDERS: ATTEND Internal Medicine Critical Care Medicine
DX: J44.9 Chronic obstructive pulmonary disease, unspecified (principal); J45.30 Mild persistent asthma, uncomplicated; I50.32 Chronic diastolic (congestive) heart failure

== ENCOUNTER 2020-07-17 11:47 | Emergency (ER) | payer MEDICARE, OTHER ==
[~2020-07-17] VITALS: Ht 167.6 cm; Wt 81.7 kg
[2020-07-17] MEDS ORDERED: PULMICORT0.25 MG/2 INH (12:03)
[2020-07-17 12:19] LABS: ABSOLUTE BASOPHILS 0.1 thou/uL (0.0-0.2); ABSOLUTE EOSINOPHILS 0.1 thou/uL (0.0-0.7); ABSOLUTE LYMPHOCYTES 1.3 thou/uL (0.8-5.3); ABSOLUTE MONOCYTES 0.4 thou/uL (0.0-1.2); EOSINOPHILS 0.9 %; HEMATOCRIT 37.4 % (37.0-47.0); HEMOGLOBIN 13.1 gm/dL (12.0-15.0); LYMPHOCYTES 22.5 %; MCH 31.7 pg (26.0-34.0); MCHC 34.9 g/dL (28.0-37.0); MCV 90.9 fL (80.0-100.0); MONOCYTES 6.7 %; NUCLEATED RBCS 0 /100WBC; PLATELET COUNT* 180 thou/uL (150-400); POLYS 68.9 %; RBC 4.11 mil/uL (4.20-5.00); WBC 5.9 thou/uL (4.0-11.0)
[2020-07-17 12:31] LABS: CALCIUM 9.6 mg/dL (8.5-10.1); CREATININE 1.8 mg/dL (0.6-1.3)
[2020-07-17 12:33] LABS: APTT 22.9 Seconds (25.0-31.3); PROTIME 10.6 Seconds (9.20-11.50)
[2020-07-17 12:42] LABS: ALBUMIN 3.6 g/dL (3.4-5.0); TOTAL BILIRUBIN 0.4 mg/dL (<0.1-1.0); TOTAL PROTEIN 8.2 g/dL (6.4-8.2)
[2020-07-17 12:52] LABS: URINE BILIRUBIN NEGATIVE (Negative); URINE BLOOD NEGATIVE (Negative); URINE CLARITY CLEAR; URINE COLOR YELLOW; URINE GLUCOSE-RANDOM 3+ (Negative); URINE KETONES NEGATIVE (Negative); URINE LEUKOCYTES-REFLEX TRACE (Negative); URINE NITRITE-REFLEX NEGATIVE (Negative); URINE PROTEIN NEGATIVE (Negative); URINE UROBILINOGEN 0.2 E.U./dl (0.2-1.0)
[2020-07-17 12:59] LABS: BACTERIA-REFLEX 1-9 Few /HPF (None Seen); CASTS None Seen /LPF (None Seen); CRYSTALS None Seen /LPF (None Seen); MUCUS 0-3 Light strn/LPF (None Seen); SQUAMOUS 0-3 Few /LPF (0-3); URINE RBC 3-10 Few /HPF (0-2); URINE WBC-REFLEX 0-5 Rare /HPF (0-5)
[2020-07-17 15:29] VITALS: BP 143/62
--- NOTE | 2020-07-18 14:29 | EKG ---
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[facility] : 1930 Requested By: Josiah Durán Order Number: [id number] MD: Jae De La Vega Measurements Intervals [place] Rate: 81 P: 47 [place]: 170 QRS: 40 QRSD: 104 T: 31 QT: 405 QTc: 470 Interpretive Statements Sinus rhythm Atrial premature complex Abnormal R-wave progression, early transition Probable inferolateral infarct, old Compared to ECG 05/26/2020 14:06:06 Atrial premature complex(es) now present Sinus tachycardia no longer present Prolonged QT interval no longer present Myocardial infarct finding still present Electronically Signed On 07-18-2020 14:29:22 CDT by Jae De La Vega [email or web address] <ELECTRONICALLY SIGNED> By: Jae De La Vega MD, FACC 07/18/20 1429 1217 1217 Jae De La Vega MD, FACC /EPI
== END 2020-07-17 15:30 | disposition home or self-care (01) ==
LOC: M.ERS 11:47
PROVIDERS: Family Medicine
DX: R06.00 Dyspnea, unspecified (principal); Z20.828 Contact with and (suspected) exposure to other viral communicable diseases; J44.9 Chronic obstructive pulmonary disease, unspecified; E78.5 Hyperlipidemia, unspecified; E11.40 Type 2 diabetes mellitus with diabetic neuropathy, unspecified; I13.0 Hypertensive heart and chronic kidney disease with heart failure and stage 1 through stage 4 chronic kidney disease, or unspecified chronic kidney disease; E11.22 Type 2 diabetes mellitus with diabetic chronic kidney disease; N18.4 Chronic kidney disease, stage 4 (severe); I50.9 Heart failure, unspecified; Z88.8 Allergy status to other drugs, medicaments and biological substances; Z96.653 Presence of artificial knee joint, bilateral; Z90.710 Acquired absence of both cervix and uterus

== ENCOUNTER 2020-08-25 13:13 | Inpatient (IN) | payer MEDICARE, OTHER ==
[~2020-08-25] VITALS: Ht 157.5 cm; Wt 81.9 kg
[~2020-08-25 13:13] MED LIST changes: +PULMICORT0.25 MG/2 INH
[2020-08-25 13:22] VITALS: BP 144/72
[2020-08-25 13:40] LABS: ABSOLUTE BASOPHILS 0.1 thou/uL (0.0-0.2); ABSOLUTE LYMPHOCYTES 1.9 thou/uL (0.8-5.3); ABSOLUTE MONOCYTES 0.4 thou/uL (0.0-1.2); ABSOLUTE NEUTROPHILS 4.6 thou/uL (1.6-8.1); BASOPHILS 1.3 %; EOSINOPHILS 0.5 %; HEMOGLOBIN 13.5 gm/dL (12.0-15.0); LYMPHOCYTES 26.8 %; MCH 31.8 pg (26.0-34.0); MCHC 35.5 g/dL (28.0-37.0); MCV 89.7 fL (80.0-100.0); MONOCYTES 6.1 %; MPV 8.7 fl. (7.2-11.1); NUCLEATED RBCS 0 /100WBC; PLATELET COUNT* 180 thou/uL (150-400); POLYS 65.3 %; RBC 4.24 mil/uL (4.20-5.00); RDW-CV 13.1 % (10.5-14.5); WBC 7.1 thou/uL (4.0-11.0)
[2020-08-25 13:46] LABS: CALCIUM 9.6 mg/dL (8.5-10.1); CREATININE 1.6 mg/dL (0.6-1.3)
[2020-08-25 13:47] LABS: APTT 21.9 Seconds (25.0-31.3); PROTIME 10.5 Seconds (9.20-11.50)
[2020-08-25 14:03] LABS: ALBUMIN 3.8 g/dL (3.4-5.0); TOTAL BILIRUBIN 0.4 mg/dL (<0.1-1.0)
[2020-08-25 14:41] LABS: BE 1.4 mmol/L (-2 to +3); PCO2 30.8 mmHg (35.0-45.0); PO2 61.5 mmHg (75.0-100.0); pH 7.505 (7.340-7.450)
[2020-08-25] MEDS ORDERED: AUGMENTIN 875-1 EACH PO (15:04)
[2020-08-25 16:30] VITALS: BP 171/86
[2020-08-25 16:56] VITALS: BP 151/59
[2020-08-25] MEDS ORDERED: JANUVIA25 MG PO (18:18)
[2020-08-25 20:54] VITALS: BP 141/54
[2020-08-26] VITALS: BP 144/56
[2020-08-26 04:00] VITALS: BP 125/50
[2020-08-26 07:45] VITALS: BP 147/62
--- NOTE | 2020-08-26 09:36 | EKG ---
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: BRENNA : 1930 Requested By: Pio Edwards Order Number: [id number] MD: Zaheer Salinas Measurements Intervals [place] Rate: 97 P: 62 [place]: 160 QRS: 37 QRSD: 102 T: 32 QT: 371 QTc: 472 Interpretive Statements Sinus rhythm Inferior infarct, old Lateral leads are also involved Compared to ECG 07/17/2020 12:17:41 Atrial premature complex(es) no longer present Myocardial infarct finding still present Electronically Signed On 08-26-2020 9:36:15 CDT by Zaheer Salinas [email or web address] <ELECTRONICALLY SIGNED> By: Zaheer Salinas MD, [facility] 08/26/20 0936 1322 1322 Zaheer Salinas MD, [facility] /EPI
[2020-08-26] MEDS ORDERED: CLARITIN10 M2 PO (09:55)
[2020-08-26] MEDS ORDERED: PREDNISONE 10 M10 MG PO (09:55)
[2020-08-26] MEDS ORDERED: AMARYL2 M1 PO (09:55)
[2020-08-26] MEDS ORDERED: ZITHROMAX250 MG PO (09:55)
[2020-08-26] MEDS ORDERED: SINGULAIR 10 MG10 M1 PO (09:55)
[2020-08-26] MEDS ORDERED: KEFLEX500 M1 PO (09:55)
[2020-08-26 11:46] VITALS: BP 147/62
[2020-08-26 11:53] VITALS: BP 147/62
== END 2020-08-26 13:17 | disposition home health service (06) | DRG 177 ==
LOC: M.ERS 13:13 → M.TBA-ER 15:15 → M.2W 15:15
PROVIDERS: Emergency Medicine; ADMIT Internal Medicine; ATTEND Internal Medicine
DX: J15.6 Pneumonia due to other Gram-negative bacteria (principal); E11.00 Type 2 diabetes mellitus with hyperosmolarity without nonketotic hyperglycemic-hyperosmolar coma (NKHHC); J96.01 Acute respiratory failure with hypoxia; J44.1 Chronic obstructive pulmonary disease with (acute) exacerbation; I13.0 Hypertensive heart and chronic kidney disease with heart failure and stage 1 through stage 4 chronic kidney disease, or unspecified chronic kidney disease; N18.4 Chronic kidney disease, stage 4 (severe); J44.0 Chronic obstructive pulmonary disease with (acute) lower respiratory infection; J20.9 Acute bronchitis, unspecified; E11.22 Type 2 diabetes mellitus with diabetic chronic kidney disease; N18.9 Chronic kidney disease, unspecified; E78.5 Hyperlipidemia, unspecified; E11.65 Type 2 diabetes mellitus with hyperglycemia; M19.90 Unspecified osteoarthritis, unspecified site; E11.40 Type 2 diabetes mellitus with diabetic neuropathy, unspecified; Z96.653 Presence of artificial knee joint, bilateral; Z60.2 Problems related to living alone; Z20.828 Contact with and (suspected) exposure to other viral communicable diseases; Z90.710 Acquired absence of both cervix and uterus; Z98.42 Cataract extraction status, left eye; Z98.41 Cataract extraction status, right eye; Z79.01 Long term (current) use of anticoagulants; Z79.84 Long term (current) use of oral hypoglycemic drugs; Z79.899 Other long term (current) drug therapy; Z88.8 Allergy status to other drugs, medicaments and biological substances; Z23 Encounter for immunization

== ENCOUNTER 2020-08-27 10:30 | Inpatient (IN) | payer MEDICARE, OTHER ==
[~2020-08-27] VITALS: Ht 157.5 cm; Wt 81.6 kg
[~2020-08-27 10:30] MED LIST changes: +AUGMENTIN 875-1 EACH PO; +CLARITIN10 M2 PO; +KEFLEX500 M1 PO; +PREDNISONE 10 M10 MG PO; +SINGULAIR 10 MG10 M1 PO; +ZITHROMAX250 MG PO
[2020-08-27 10:38] VITALS: BP 179/69
[2020-08-27 11:24] LABS: URINE BILIRUBIN NEGATIVE (Negative); URINE BLOOD NEGATIVE (Negative); URINE CLARITY CLEAR; URINE COLOR YELLOW; URINE GLUCOSE-RANDOM 3+ (Negative); URINE KETONES NEGATIVE (Negative); URINE LEUKOCYTES-REFLEX NEGATIVE (Negative); URINE NITRITE-REFLEX NEGATIVE (Negative); URINE PROTEIN NEGATIVE (Negative); URINE UROBILINOGEN 0.2 E.U./dl (0.2-1.0)
[2020-08-27 11:44] LABS: CREATININE 1.5 mg/dL (0.6-1.3); POTASSIUM 4.5 mmol/L (3.5-5.1)
[2020-08-27 11:48] LABS: ALBUMIN 3.4 g/dL (3.4-5.0); MAGNESIUM 1.9 mg/dL (1.8-2.4); TOTAL BILIRUBIN 0.4 mg/dL (<0.1-1.0); TOTAL PROTEIN 7.8 g/dL (6.4-8.2)
[2020-08-27 12:09] LABS: ABSOLUTE BASOPHILS 0.1 thou/uL (0.0-0.2); ABSOLUTE LYMPHOCYTES 1.2 thou/uL (0.8-5.3); ABSOLUTE MONOCYTES 0.6 thou/uL (0.0-1.2); ABSOLUTE NEUTROPHILS 5.2 thou/uL (1.6-8.1); EOSINOPHILS 0.4 %; HEMATOCRIT 38.4 % (37.0-47.0); HEMOGLOBIN 13.3 gm/dL (12.0-15.0); MCH 31.6 pg (26.0-34.0); MCHC 34.6 g/dL (28.0-37.0); MCV 91.2 fL (80.0-100.0); MONOCYTES 8.1 %; MPV 8.6 fl. (7.2-11.1); NUCLEATED RBCS 0 /100WBC; PLATELET COUNT* 178 thou/uL (150-400); POLYS 73.5 %; RBC 4.21 mil/uL (4.20-5.00); RDW-CV 12.8 % (10.5-14.5); WBC 7.1 thou/uL (4.0-11.0)
[2020-08-27 14:53] VITALS: BP 185/63
[2020-08-27 17:31] VITALS: BP 121/55
[2020-08-27 21:30] VITALS: BP 161/66
[2020-08-28] VITALS: BP 107/47
[2020-08-28 04:00] VITALS: BP 114/45
[2020-08-28 04:06] LABS: GLYCOHEMOGLOBIN (HGB A1C) 11.7 % (4.8-5.6)
[2020-08-28 08:00] VITALS: BP 150/55
[2020-08-28 12:16] VITALS: BP 112/48
[2020-08-28 19:27] VITALS: BP 126/94
[2020-08-28 20:00] VITALS: BP 133/47
[2020-08-29] VITALS: BP 127/50
[2020-08-29 05:06] LABS: ABSOLUTE EOSINOPHILS 0.1 thou/uL (0.0-0.7); ABSOLUTE LYMPHOCYTES 1.3 thou/uL (0.8-5.3); ABSOLUTE MONOCYTES 0.4 thou/uL (0.0-1.2); ABSOLUTE NEUTROPHILS 3.1 thou/uL (1.6-8.1); BASOPHILS 0.6 %; EOSINOPHILS 1.8 %; HEMATOCRIT 31.7 % (37.0-47.0); LYMPHOCYTES 26.3 %; MCH 31.8 pg (26.0-34.0); MCHC 34.9 g/dL (28.0-37.0); MCV 91.1 fL (80.0-100.0); MONOCYTES 8.5 %; MPV 8.8 fl. (7.2-11.1); NUCLEATED RBCS 0 /100WBC; PLATELET COUNT* 147 thou/uL (150-400); POLYS 62.8 %; RBC 3.48 mil/uL (4.20-5.00); RDW-CV 13.2 % (10.5-14.5)
[2020-08-29 05:23] LABS: HEMOGLOBIN 11.1 gm/dL (12.0-15.0)
[2020-08-29 05:31] VITALS: BP 126/52
[2020-08-29 05:39] LABS: ALBUMIN 2.9 g/dL (3.4-5.0); CALCIUM 8.7 mg/dL (8.5-10.1); CREATININE 1.1 mg/dL (0.6-1.3); MAGNESIUM 1.7 mg/dL (1.8-2.4); POTASSIUM 3.8 mmol/L (3.5-5.1); TOTAL BILIRUBIN 0.3 mg/dL (<0.1-1.0); TOTAL PROTEIN 6.2 g/dL (6.4-8.2)
[2020-08-29 08:00] VITALS: BP 158/59
[2020-08-29 12:08] VITALS: BP 138/60
[2020-08-29 17:25] VITALS: BP 144/53
[2020-08-29 22:00] VITALS: BP 139/58
[2020-08-30 07:35] VITALS: BP 140/61
[2020-08-30 16:00] VITALS: BP 140/56
[2020-08-30 22:45] VITALS: BP 138/60
[2020-08-31 06:13] LABS: HEMATOCRIT 34.9 % (37.0-47.0); HEMOGLOBIN 11.8 gm/dL (12.0-15.0); MCH 30.9 pg (26.0-34.0); MCHC 33.9 g/dL (28.0-37.0); MCV 91.1 fL (80.0-100.0); RBC 3.83 mil/uL (4.20-5.00); RDW-CV 13.3 % (10.5-14.5); WBC 5.7 thou/uL (4.0-11.0)
[2020-08-31 06:53] LABS: CREATININE 1.2 mg/dL (0.6-1.3); MAGNESIUM 1.9 mg/dL (1.8-2.4)
[2020-08-31 08:18] VITALS: BP 114/66
[2020-08-31 15:41] VITALS: BP 126/54
[2020-08-31 22:15] VITALS: BP 142/60
[2020-09-01] VITALS (7 sets, daily range): BP systolic 129; BP diastolic 90
[2020-09-01] MEDS ORDERED: NORCO 5-325 TA1 EAC2 PO (08:24)
[2020-09-01] MEDS ORDERED: BROVANA15 MCG/2 M INH (08:24)
[2020-09-01] MEDS ORDERED: CEFDINIR300 MG PO (08:24)
== END 2020-09-01 14:51 | disposition home health service (06) | DRG 637 ==
LOC: M.ERS 10:30 → M.2W 13:17 → M.TBA-ER 13:17 → M.2W 14:53 → M.ORTHSURG 08-29 21:29
PROVIDERS: Personal Emergency Response Attendant; ADMIT Internal Medicine; ATTEND Internal Medicine
DX: E11.00 Type 2 diabetes mellitus with hyperosmolarity without nonketotic hyperglycemic-hyperosmolar coma (NKHHC) (principal); J15.6 Pneumonia due to other Gram-negative bacteria; J96.01 Acute respiratory failure with hypoxia; I13.0 Hypertensive heart and chronic kidney disease with heart failure and stage 1 through stage 4 chronic kidney disease, or unspecified chronic kidney disease; N18.4 Chronic kidney disease, stage 4 (severe); E87.2 Acidosis; E11.40 Type 2 diabetes mellitus with diabetic neuropathy, unspecified; E78.5 Hyperlipidemia, unspecified; J44.9 Chronic obstructive pulmonary disease, unspecified; E11.22 Type 2 diabetes mellitus with diabetic chronic kidney disease; M19.90 Unspecified osteoarthritis, unspecified site; I50.9 Heart failure, unspecified; Z96.653 Presence of artificial knee joint, bilateral; Z20.828 Contact with and (suspected) exposure to other viral communicable diseases; Z90.710 Acquired absence of both cervix and uterus; Z98.42 Cataract extraction status, left eye; Z98.41 Cataract extraction status, right eye; Z79.84 Long term (current) use of oral hypoglycemic drugs; Z79.899 Other long term (current) drug therapy; Z79.01 Long term (current) use of anticoagulants; Z88.8 Allergy status to other drugs, medicaments and biological substances

== ENCOUNTER → 2020-09-06 | Outpatient (CLI) | payer MEDICARE, OTHER ==
[~2020-09-06] MED LIST changes: +BROVANA15 MCG/2 M INH; +CEFDINIR300 MG PO
== END ==
LOC: M.ULTRA 15:30
PROVIDERS: ATTEND Family Medicine
DX: M79.89 Other specified soft tissue disorders (principal)

== ENCOUNTER 2020-11-09 18:17 | Emergency (ER) | payer MEDICARE, OTHER ==
[~2020-11-09] VITALS: Ht 157.5 cm; Wt 77.1 kg
[2020-11-09] MEDS ORDERED: JANUVIA 50 MG T50 M1 PO (18:39)
[2020-11-09] MEDS ORDERED: LIPITOR 10 MG10 M1 PO (18:40)
[2020-11-09] MEDS ORDERED: CARDIZEM SR 60M60 MG PO (18:40)
[2020-11-09] MEDS ORDERED: FUROSEMIDE 40 M40 MG PO (18:40)
[2020-11-09] MEDS ORDERED: MONTELUKAST SODI4 M1 PO (18:40)
[2020-11-09] MEDS ORDERED: ASA81BEC PO (18:41)
[2020-11-09] MEDS ORDERED: PRANDIN2 MG PO (18:41)
[2020-11-09 19:01] LABS: ABSOLUTE EOSINOPHILS 0.1 thou/uL (0.0-0.7); ABSOLUTE LYMPHOCYTES 1.6 thou/uL (0.8-5.3); ABSOLUTE MONOCYTES 0.5 thou/uL (0.0-1.2); ABSOLUTE NEUTROPHILS 4.7 thou/uL (1.6-8.1); BASOPHILS 0.7 %; EOSINOPHILS 1.2 %; HEMATOCRIT 38.4 % (37.0-47.0); HEMOGLOBIN 13.2 gm/dL (12.0-15.0); LYMPHOCYTES 23.3 %; MCHC 34.3 g/dL (28.0-37.0); MCV 90.2 fL (80.0-100.0); MONOCYTES 7.3 %; MPV 8.7 fl. (7.2-11.1); NUCLEATED RBCS 0 /100WBC; PLATELET COUNT* 187 thou/uL (150-400); POLYS 67.5 %; RBC 4.26 mil/uL (4.20-5.00); RDW-CV 13.3 % (10.5-14.5); WBC 6.9 thou/uL (4.0-11.0)
[2020-11-09 19:11] LABS: CALCIUM 9.8 mg/dL (8.5-10.1); CREATININE 1.6 mg/dL (0.6-1.3); POTASSIUM 3.8 mmol/L (3.5-5.1)
[2020-11-09 19:13] LABS: APTT 22.7 Seconds (25.0-31.3); PROTIME 10.4 Seconds (9.20-11.50)
[2020-11-09 19:21] LABS: ALBUMIN 3.9 g/dL (3.4-5.0); TOTAL BILIRUBIN 0.3 mg/dL (<0.1-1.0); TOTAL PROTEIN 8.6 g/dL (6.4-8.2)
[2020-11-09 19:21] LABS: URINE BILIRUBIN NEGATIVE (Negative); URINE BLOOD NEGATIVE (Negative); URINE CLARITY CLEAR; URINE COLOR YELLOW; URINE GLUCOSE-RANDOM 2+ (Negative); URINE KETONES NEGATIVE (Negative); URINE LEUKOCYTES NEGATIVE (Negative); URINE NITRITE NEGATIVE (Negative); URINE PROTEIN TRACE (Negative); URINE SPECIFIC GRAVITY 1.015 (1.005-1.030); URINE UROBILINOGEN 0.2 E.U./dl (0.2-1.0)
[2020-11-09 21:19] VITALS: BP 164/65
--- NOTE | 2020-11-10 10:18 | EKG ---
[place] [address] ELECTROCARDIOGRAM REPORT Name: RODERICK ROBIN Room: 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: ELSIE : 1930 Requested By: Stacey Delaney Order Number: [id number] MD: Zaheer Salinas Measurements Intervals [place] Rate: 94 P: 53 [place]: 162 QRS: 41 QRSD: 99 T: 26 QT: 392 QTc: 491 Interpretive Statements Sinus rhythm Probable inferior infarct, old Compared to ECG 08/25/2020 13:22:49 No significant changes Electronically Signed On 11-10-2020 10:17:59 WET PROCESS MILLER by Zaheer Salinas [email or web address] <ELECTRONICALLY SIGNED> By: Zaheer Salinas MD, [facility] 11/10/20 1017 1830 183 Zaheer Salinas MD, [facility] /EPI
== END 2020-11-09 21:19 | disposition still patient (30) ==
LOC: M.ERS 18:17
PROVIDERS: Personal Emergency Response Attendant; Physician Assistant
DX: F41.9 Anxiety disorder, unspecified (principal); R06.02 Shortness of breath; R10.32 Left lower quadrant pain; Z20.828 Contact with and (suspected) exposure to other viral communicable diseases; I13.0 Hypertensive heart and chronic kidney disease with heart failure and stage 1 through stage 4 chronic kidney disease, or unspecified chronic kidney disease; E11.22 Type 2 diabetes mellitus with diabetic chronic kidney disease; N18.4 Chronic kidney disease, stage 4 (severe); I50.9 Heart failure, unspecified; E78.00 Pure hypercholesterolemia, unspecified; E11.40 Type 2 diabetes mellitus with diabetic neuropathy, unspecified; Z88.8 Allergy status to other drugs, medicaments and biological substances; Z90.710 Acquired absence of both cervix and uterus